=== PATIENT | male | born 1950 | race Caucasian/White ===

== ENCOUNTER → 2021-12-15 11:09 | Outpatient (REF) | payer OTHER, SELFPAY ==
--- NOTE | 2021-12-15 11:15 | ECG_ITS ---
Test Reason : PREOP Blood Pressure : / mmHG Vent. Rate : 073 BPM Atrial Rate : 073 BPM P-R Int : 234 ms QRS Dur : 094 ms QT Int : 386 ms P-R-T Axes : 105 -09 -16 degrees QTc Int : 425 ms Sinus rhythm with 1st degree A-V block with Premature atrial complexes with Aberrant conduction Otherwise normal ECG When compared with ECG of 23-APR-2020 11:41, Aberrant conduction is now Present AR interval has increased Referred By: Queta Jacob Electronically Signed By:ALL COLBERT MD
[2021-12-15 11:35] LABS: MANUAL DIFF FLAG NO
[2021-12-15 11:54] LABS: Basophils Percent Auto 0.5 % (0-2); Eosinophils Absolute Auto 0.2 X10*3/uL (0.0-0.4); Hematocrit 39.6 % (42.0-52.0); Hemoglobin 13.1 g/dl (14.0-18.0); Imm Gran Abs Auto 0.02 X10*3/uL (0.00-0.03); Imm Gran Pct Auto 0.4 % (0.0-0.4); Lymphocytes Percent Auto 18.1 % (20-40); Mean Corpuscular HGB Conc 33.1 g/dl (31.0-36.0); Mean Corpuscular Hemoglobin 30.5 pg (27.0-33.0); Mean Corpuscular Volume 92.1 fL (80.0-98.0); Mean Platelet Volume 9.6 fL (9.4-12.4); Monocytes Absolute Auto 0.5 X10*3/uL (0.1-1.2); Monocytes Percent Auto 8.3 % (2-11); Neutrophils Percent Auto 69.7 % (45-73); Platelet Count 304 X10*3/uL (160-400); Red Cell Distribution Width 13.2 % (11.0-16.0); White Blood Count 5.7 X10*3/uL (4.8-10.8)
[2021-12-15 11:57] LABS: Immature Retic Fraction 10.6 % (2.3-13.4); Retic HGB Equivalent 33.9 pg (30.0-35.0); Reticulocyte Percent 2.1 % (0.5-1.8)
[2021-12-15 12:02] LABS: INTERNATIONAL NORM RATIO 1.1 (0.9-1.1); Prothrombin Time 12.4 SEC (9.9-13.0)
[2021-12-15 12:04] LABS: Estimated Average Glucose 166 mg/dL; Hemoglobin A1c % 7.4 %
[2021-12-15 12:34] LABS: Alanine Aminotransferase 58 U/L (0-40); Albumin Level 4.4 g/dL (3.5-5.0); Alkaline Phosphatase 117 U/L (39-117); Anion Gap 12 (12-20); Aspartate Amino Transferase 45 U/L (5-37); Bilirubin Total 0.4 mg/dL (0.0-1.0); Blood Urea Nitrogen 25 mg/dL (9-16); Calcium 9.5 mg/dL (8.4-10.2); Carbon Dioxide 25 mmol/L (22-29); Chloride 107 mmol/L (96-108); Cholesterol 170 mg/dL; Estimated Glomerular Filt Rate > 60; Glucose Random 131 mg/dL (60-115); HDL Cholesterol 41 mg/dL; Iron 60 mcg/dL (45-160); LDL Cholesterol Calculated 93 mg/dl; Percent Iron Saturation 18 % (15-50); Potassium 4.6 mmol/L (3.3-5.1); Sodium 139 mmol/L (135-145); Total Iron Binding Capacity 334 mcg/dL (228-428); Total Protein 7.2 g/dL (6.5-8.0); Triglycerides 181 mg/dL; Unsaturated Iron Binding 274 ug/dL
[2021-12-15 12:55] LABS: Thyroid Stimulating Hormone 1.12 uIU/mL (0.32-4.0)
[2021-12-15 13:00] LABS: Ferritin 81 ng/mL (20-250); PSA,Total (Free>4and<10) < 0.05 ng/mL (0.00-4.00)
[2021-12-15 13:19] LABS: Creatinine Urine 150.81 mg/dL; Microalbum/Creatinine Ratio Ur 8.6 ug/mg cr
[2021-12-15 13:26] LABS: Folate > 20.0 ng/mL (> or = 4.0); Vitamin B12 710 pg/mL (200-900)
== END ==
LOC: HO.CARD 11:09
PROVIDERS: PCP Internal Medicine; Visit Provider Nurse Practitioner Family
DX: Z01.818 Encounter for other preprocedural examination (principal); D64.9 Anemia, unspecified; I10 Essential (primary) hypertension; E11.65 Type 2 diabetes mellitus with hyperglycemia; E78.00 Pure hypercholesterolemia, unspecified; K22.70 Barrett's esophagus without dysplasia; C61 Malignant neoplasm of prostate
CPT/HCPCS: 36415; 80053; 80061; 82043; 82607; 82728; 82746; 83036; 83540; 84153; 84439; 84443; 85025; 85045; 85610; 85730; 93005

== ENCOUNTER 2023-06-12 08:10 | Outpatient (AMB) | payer OTHER, SELFPAY ==
[2023-06-12 08:17] VITALS: BP 140/76; PULSE 68; O2SAT 97; BMI 29.2
--- NOTE | 2023-06-12 08:17 | A.OFFPC_ITS ---
Vital Signs 06/12/23 08:17 Height 6 ft 1 in Weight 221 lb BMI 29.2 BP 140/76 H Blood Pressure Location Lt brachial Position Sitting Pulse 68 Pulse Source Pulse Oximeter Pulse Oximetry (%) 97 Oxygen Delivery Method Room Air Intake Visit Reasons: 6m F/U DM Allergies No Known Allergies Allergy (Verified 06/12/23 08:17) Tobacco use date assessed: 12/06/22 Fall risk assessment: No Falls in past year Last assessed Fall Risk: 06/12/23 Dental Screening Dental Screen Date: 06/12/23 Did you have a dental visit in the last 12 months?: Yes Did you have a dental problem in the last 6 months where you did not have access to dental care?: No Was dental information given to patient?: Patient has dentist HPI 6m F/U DM HPI Details 73-year-old overweight male with uncontrolled diabetes mellitus Foreman's esophagus hypercholesterolemia obstructive sleep apnea history of prostate cancer coming in for follow-up last seen in March 2022. Patient is here for follow-up. Colonoscopy done May [address] Villalba patient is being seen by Endocrinology. Review of the notes urology follow-up April 2020 diagnosis of prostate cancer April 2018 radiation therapy October 2019 completed 2 years androgen deprivation therapy patient continues to have a problem with radiation proctitis. Meanwhile diabetes being seen by Dr. Emmanuel in [facility] hemoglobin A1c 7.0 last note in March 2023. Last blood work noted done November 2022 microalbumin creatinine ratio 11 fasting blood sugar 161 creatinine is 0.9 liver function ALT of 44 LDL of 80 triglyceride of 188 normal thyroid mild anemia at 13.4. on lisinopril 20 mg BID . EGD - will be seeing 07/2023 [facility] GI. PAtient was given another med for colesevelam [facility] Medical History (Updated 12/06/22 @ 10:37 by BARBARA Sauer) Barretts esophagus Cataract Fatty liver Hiatal hernia Hypercholesterolemia Lumbar degenerative disc disease Obstructive sleep apnea Prostate cancer Radiation proctitis Type 2 diabetes mellitus with hyperglycemia Surgical History (Updated 12/06/22 @ 10:34 by BARBARA Sauer) History of cataract surgery History of colonoscopy History of endoscopy History of removal of cyst Family History Father Testicular cancer Diabetes Hypertension Stroke Mother Colon cancer Breast cancer Paternal Uncle Myocardial infarction Brother Kidney problem Brother No problems noted. Social History Housing: House Alcohol intake: current Alcohol intake frequency: a few times a week Alcohol type: wine Patient Tobacco Use Status: Former Tobacco user Tobacco use type: Cigarette Cigarette Packs Per Day: 1 e-Cigarette/Vaping Use: Never Used Second Hand Smoke Exposure: No service: No Current occupational status: retired Cognitive needs: No Hearing needs: No Vision needs: Yes (reading glasses) Questionnaire PHQ-9 Over the last 2 weeks, how often have you been bothered by any of the following problems? 1. Little interest or pleasure in doing things: not at all 2. Feeling down, depressed, or hopeless: not at all 3. Trouble falling or staying asleep, or sleeping too much: not at all 4. Feeling tired or having little energy: not at all 5. Poor appetite or overeating: not at all 6. Feeling bad about yourself - or that you are a failure or have let yourself or your family down: not at all 7. Trouble concentrating on things, such as reading the newspaper or watching television: not at all 8. Moving or speaking so slowly that other people could have noticed. Or the opposite - being so fidgety or restless that you have been moving around a lot more than usual: not at all 9. Thoughts that you would be better off or of hurting yourself in some way: not at all Total score: 0 Depression Screening Interpretation: Negative 18645 - PHQ-9 Billing: Yes Source: Developed by Drs. Earl Woodson, Ailyn Barron, Abner Blair and colleagues, with an educational walker from [employer]. Thrive Questionnaire Date Thrive assessed: 12/06/22 AUDIT C Alcohol Use Questionnaire (AUDIT-C) 1. How often do you have a drink containing alcohol?: 4 or more times a week 2. How many drinks containing alcohol do you have on a typical day when you are drinking?: 1 or 2 3. How often do you have six or more drinks on one occasion?: Never Total Score: 4 Score Reviewed/Action Taken: Yes LOGAN-7 AMB Questionnaire LOGAN-7 Date LOGAN - 7 assessed: 12/06/22 Source: Developed by Drs. Earl Woodson, Ailyn Barron, Abner Blair and colleagues, with an educational walker from [employer]. Physical exam (Primary Care) Vital Signs: Last Vital Signs Pulse 68 06/12/23 08:17 BP 140/76 H 06/12/23 08:17 Pulse Ox 97 06/12/23 08:17 Oxygen Delivery Method Room Air 06/12/23 08:17 BMI result Body Mass Index 29.2 Tobacco/Smoking Status: Tobacco use Status Tobacco use date assessed 12/06/22 06/12/23 08:18 Patient Tobacco Use Status Former Tobacco user 06/12/23 08:18 Tobacco use type Cigarette 06/12/23 08:18 e-Cigarette/Vaping Use Never Used 06/12/23 08:18 PHQ-9: PHQ-9 Score PHQ-9: Total score 0 06/12/23 08:18 Depression Screening Interpretation: Negative Thrive Assessment: Date of Thrive Assessment Date Thrive assessed 12/06/22 06/12/23 08:18 Const General: alert; No acute distress Eyes Conjunctivae: conjunctivae normal Resp Auscultation: clear to auscultation bilaterally Cardio Rate: regular rate Rhythm: regular rhythm GI Inspection: Yes normal to inspection Extrem General: Yes normal to inspection and No edema Assessment and Plan Assessment & Plan (1) Type 2 diabetes mellitus with hyperglycemia: Code(s): E11.65 - Type 2 diabetes mellitus with hyperglycemia Qualifiers: Diabetes mellitus residential insulin use: without residential use Qualified Code(s): E11.65 - Type 2 diabetes mellitus with hyperglycemia Plan: Decrease the amount of carbohydrate intake, pasta, bread, rice and potatoes are all sugar and that is aside from all the sweet stuff, remember that fruits are good but they are Sweet also. Hemoglobin A1c goal of less than 7.0. Patient being seen by Endocrinology patient takes Humalog sliding scale Lantus at 35 units once a day Trulicity 1.5 mg once a week (2) Barretts esophagus: Comment: Status post radiofrequency ablation January 2010, EGD October 2021 Code(s): K22.70 - Foreman's esophagus without dysplasia Qualifiers: Foreman's esophagus type: without dysplasia Qualified Code(s): K22.70 - Foreman's esophagus without dysplasia Plan: Avoid the foods that causes that usually spicy foods, tomato products, juices, coffee, soda and foods that your sensitive to. After eating do not lie down, allow 3-4 hours before in lie down. And keep the head of bed above 30 degrees to avoid the acid from going up. On omeprazole 40 mg twice a day (3) Hypercholesterolemia: Code(s): E78.00 - Pure hypercholesterolemia, unspecified Plan: Avoid fried foods, chicken skin, eggs, butter margarine, pastries and meat. Be it pork or beef they have a lot of cholesterol LDL goal of less than 100 and triglyceride of less than 150 patient's last blood work was in November 2022 (4) Obstructive sleep apnea: Comment: cannot tolerate CPAP (08/2020) Code(s): G47.33 - Obstructive sleep apnea (adult) (pediatric) Plan: Cannot tolerate CPAP (5) Prostate cancer: Comment: May 2018 Dr. Tilley radiotherapy November 2019. has a ff up Code(s): C61 - Malignant neoplasm of prostate Plan: Continue to follow-up with the Urology (6) Hypertension: Code(s): I10 - Essential (primary) hypertension Plan: Continue with blood pressure medication. Decrease salt intake and exercise presently on lisinopril 20 mg twice a day Orders: Orders Comprehensive Met. Panel 6 Months E11.65 - Type 2 diabetes mellitus with hyperglycemia Complete Blood Count Auto Diff 6 Months E11.65 - Type 2 diabetes mellitus with hyperglycemia Free T4 (Free Thyroxine) 6 Months E11.65 - Type 2 diabetes mellitus with hyperglycemia Thyroid Stimulating Hormone 6 Months E11.65 - Type 2 diabetes mellitus with hyperglycemia Microalbumin, Random (w Creat) 6 Months E11.65 - Type 2 diabetes mellitus with hyperglycemia Ferritin 6 Months E11.65 - Type 2 diabetes mellitus with hyperglycemia Creatinine Urine Today E11.65 - Type 2 diabetes mellitus with hyperglycemia IRON PROFILE 6 Months E11.65 - Type 2 diabetes mellitus with hyperglycemia Lipid Panel 6 Months E11.65 - Type 2 diabetes mellitus with hyperglycemia, E78.00 - Pure hypercholesterolemia, unspecified Vitamin B12 and Folate 6 Months E11.65 - Type 2 diabetes mellitus with hyperglycemia Prostate Specific Antigen Scr 6 Months E11.65 - Type 2 diabetes mellitus with hyperglycemia Reticulocyte Count 6 Months E11.65 - Type 2 diabetes mellitus with hyperglycemia AMB Hemoglobin A1c Today Z13.9 - Encounter for screening, unspecified Referrals Sleep Medicine Referral G47.33 - Obstructive sleep apnea (adult) (pediatric) Medications: New lisinopril-hydrochlorothiazide 20-12.5 mg 1 tab PO BID 60 tabs 4RF I10 - Essen tial (primary) hypertension Coding Level of Care Code Est Pt Level 4 (54578) Diagnoses Type 2 diabetes mellitus with hyperglycemia E11.65 Diabetes mellitus continuous churn 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
== END 2023-06-12 09:05 | disposition home or self-care (01) ==
PROVIDERS: PCP Internal Medicine; Visit Provider Internal Medicine
DX: I10 Essential (primary) hypertension (principal); C61 Malignant neoplasm of prostate; E11.65 Type 2 diabetes mellitus with hyperglycemia; K22.70 Barrett's esophagus without dysplasia; E78.00 Pure hypercholesterolemia, unspecified; G47.33 Obstructive sleep apnea (adult) (pediatric)
CPT/HCPCS: 99214

== ENCOUNTER 2023-12-11 09:51 | Outpatient (AMB) | payer OTHER, SELFPAY ==
[2023-12-11 09:52] VITALS: BP 130/60; PULSE 68; O2SAT 99; BMI 28.1
--- NOTE | 2023-12-11 09:52 | MHC.PC.OV ---
Vital Signs 12/11/23 09:52 Height 6 ft 1 in Weight 213 lb BMI 28.1 BP 130/60 Blood Pressure Location Lt brachial Position Sitting Pulse 68 Pulse Source Pulse Oximeter Temp Source Skin Pulse Oximetry (%) 99 Oxygen Delivery Method Room Air Intake Visit Reasons: pe, DM Intake Note: Patient is here today for a physical. Head Sawyer Required: No Allergies No Known Allergies Allergy (Verified 12/11/23 09:53) Medication List - Last Reconciled 12/11/23 by Antoni Damon MD antiarthritic combination no.2 (glucosamine-chondroitin) 900 mg PO DAILY atorvastatin (Lipitor) 10 mg PO DAILY B-complex with vitamin C 1 tab PO DAILY blood sugar diagnostic (FreeStyle Lite Strips) test blood sugar ones a day cholecalciferol (vitamin D3) 25 mcg PO DAILY dulaglutide (Trulicity) 1.5 mg subcut QWEEK insulin glargine (Lantus Solostar U-100 Insulin) 40 units subcut QAM insulin lispro (Humalog KwikPen (U-100) Insulin) 5 units subcut TID lisinopril-hydrochlorothiazide 20-12.5 mg 1 tab PO BID multivitamin 1 tab PO DAILY omeprazole 40 mg PO BID 90 days Tobacco use date assessed: 12/11/23 Fall risk assessment: No Falls in past year Last assessed Fall Risk: 12/11/23 Dental Screening Dental Screen Date: 12/11/23 Did you have a dental visit in the last 12 months?: Yes Did you have a dental problem in the last 6 months where you did not have access to dental care?: No Was dental information given to patient?: Patient has dentist HPI pe, DM HPI Details 73-year-old overweight male with diabetes mellitus hypercholesterolemia Foreman's esophagus obstructive sleep apnea prostate cancer hypertension coming in for physical exam last seen in June 2023. Patient's colonoscopy was last done in May 2020 EGD last done in October 2021. Blood work done in [facility] showing an elevated blood sugar of 186 creatinine of 1.0 normal liver numbers normal iron LDL of 75 triglyceride of 122 total of 145 normal thyroid number mild anemia of 13.1 and 39.4 normal white blood cell normal platelet count urine microalbumin ratio is 10.8 patient follows up with Dermatology benign nevi seborrheic keratosis history of basal cell patient also follows up with urology April 2018 radiation therapy androgen deprivation does have radiation proctitis with intermittent diarrhea and hematochezia Dr. Prasad EGD done under Dr. Kohli July 2023 normal stomach and duodenum advised EGD 1 year HGB AIC 11/2023 7.2 2 weeks ago fell on the stairs R humeral fracture 11/27/2023 Dr. Sami PINTO advised - aligned ff up next week xray on oxycodone 5 mg . [facility] Medical History (Updated 12/11/23 @ 10:43 by Antoni Damon MD) Hiatal hernia Radiation proctitis Lumbar degenerative disc disease Cataract Prostate cancer Obstructive sleep apnea Fatty liver Hypercholesterolemia Barretts esophagus Type 2 diabetes mellitus with hyperglycemia Surgical History (Updated 12/06/22 @ 10:34 by BARBARA Sauer) History of colonoscopy History of endoscopy History of removal of cyst History of cataract surgery Family History Father Testicular cancer Diabetes Hypertension Stroke Mother Colon cancer Breast cancer Paternal Uncle Myocardial infarction Brother Kidney problem Brother No problems noted. Social History (Updated 12/11/23 @ 10:51 by Antoni Damon MD) Housing: House Alcohol intake: current Alcohol intake frequency: a few times a week Alcohol type: wine Comment: oncea week = 3-4 drinks Patient Tobacco Use Status: Former Tobacco user Tobacco use type: Cigarette Cigarette Packs Per Day: 1 Years Smoked: quit 1999 e-Cigarette/Vaping Use: Never Used Second Hand Smoke Exposure: No service: No Current occupational status: retired Cognitive needs: No Hearing needs: No Vision needs: Yes (reading glasses) Questionnaire PHQ-9 Over the last 2 weeks, how often have you been bothered by any of the following problems? 1. Little interest or pleasure in doing things: not at all 2. Feeling down, depressed, or hopeless: not at all 3. Trouble falling or staying asleep, or sleeping too much: not at all 4. Feeling tired or having little energy: not at all 5. Poor appetite or overeating: not at all 6. Feeling bad about yourself - or that you are a failure or have let yourself or your family down: not at all 7. Trouble concentrating on things, such as reading the newspaper or watching television: not at all 8. Moving or speaking so slowly that other people could have noticed. Or the opposite - being so fidgety or restless that you have been moving around a lot more than usual: not at all 9. Thoughts that you would be better off or of hurting yourself in some way: not at all Total score: 0 Depression Screening Interpretation: Negative Depression Screening Done: Yes Source: Developed by Drs. Earl Woodson, Ailyn Barron, Abner Blair and colleagues, with an educational walker from [employer]. Thrive Questionnaire Date Thrive assessed: 12/11/23 I am a: Patient What is your living situation today?: I have a steady place to live Within the past 12 months, did the food you bought not last and you didn't have the money to get more?: Never true Within the past 12 months, did you worry whether your food would run out before you got money to buy more?: Never true Do you have trouble paying for medicines?: No Do you have trouble getting transportation to medical appointments?: No Do you have trouble paying your heating and electricity bill?: No Do you have trouble taking care of your child, family member or friend?: No Do you have trouble with day-to-day activities such as bathing, preparing meals, shopping, managing finances, etc.?: No Are you currently unemployed and looking for a job?: No Are you interested in more education?: No Please select the resources that you would like help with: None THRIVE Score: 0 AUDIT C Alcohol Use Questionnaire (AUDIT-C) 1. How often do you have a drink containing alcohol?: 4 or more times a week 2. How many drinks containing alcohol do you have on a typical day when you are drinking?: 1 or 2 3. How often do you have six or more drinks on one occasion?: Never Total Score: 4 Score Reviewed/Action Taken: Yes LOGAN-7 AMB Questionnaire LOGAN-7 Date LOGAN - 7 assessed: 12/11/23 Feeling nervous, anxious, or on edge: 0 = Not at all Not being able to stop or control worryin = Not at all Worrying too much about different things: 0 = Not at all Trouble relaxin = Not at all Being so restless that it is hard to sit still: 0 = Not at all Becoming easily annoyed or irritable: 0 = Not at all Feeling afraid as if something awful might happen: 0 = Not at all Total LOGAN-7 score (0-4 normal; 5-9 mild; 10-14 moderate; 15-21 severe): 0 Source: Developed by Drs. Earl Woodson, Ailyn Barron, Abner Blair and colleagues, with an educational walker from [employer]. Review of Systems Const Denies poor appetite and Denies weakness Eyes Denies no additional complaints ENT Reports Normal hearing present, Denies dizziness, Denies nasal congestion, Denies tinnitus and Denies sore throat Card Denies chest pain, Denies syncope, Denies rapid heart rate and Denies dyspnea Resp Denies cough and Denies dyspnea GI Denies change in stool character, Reports constipation, Denies diarrhea, Denies nausea and Denies vomiting Denies dysuria and Denies urinary frequency Neuro Reports Normal hearing present, Denies confusion, Denies dizziness, Denies syncope and Denies weakness Psych Denies confusion Physical exam (Primary Care) Vital Signs: Last Vital Signs Pulse 68 12/11/23 09:52 BP 130/60 12/11/23 09:52 Pulse Ox 99 12/11/23 09:52 Oxygen Delivery Method Room Air 12/11/23 09:52 BMI result Body Mass Index 28.1 Tobacco/Smoking Status: Tobacco use Status Tobacco use date assessed 12/11/23 12/11/23 09:54 Patient Tobacco Use Status Former Tobacco user 12/11/23 09:54 Tobacco use type Cigarette 12/11/23 09:54 e-Cigarette/Vaping Use Never Used 12/11/23 09:54 PHQ-9: PHQ-9 Score PHQ-9: Total score 0 12/11/23 10:18 Depression Screening Interpretation: Negative Thrive Assessment: Date of Thrive Assessment Date Thrive assessed 12/11/23 12/11/23 09:54 Const General: No confusion Orientation/consciousness: No confusion HENMT Head: Yes normocephalic Ears: external ears normal and TM's normal bilaterally Face and sinus: Yes normal facial exam Mouth: moist mucous membranes Throat: Yes tonsils normal Eyes Conjunctivae: conjunctivae normal Pupils: Equal, round and reactive pupils present and Pupil accommodation reflex normal Direct Ophthalmoscopy: normal light reflex Neck Neck: No lymphadenopathy Thyroid: Thyroid normal Chest Chest palpation & inspection: normal inspection of the chest Resp Effort & Inspection: normal respiratory effort and no audible wheezes Auscultation: clear to auscultation bilaterally, no crackles, no wheezes and lung sounds not diminished Cardio Rate: regular rate Rhythm: regular rhythm Peripheral pulses: radial pulses present and dorsalis pedis present GI Palpation (GI): no masses Auscultation: normal bowel sounds and normoactive bowel sounds Rectal Exam - Male: Yes deferred Skin General skin exam: no rashes or lesions noted Rashes: no rashes Neuro General: No confusion Cranial nerves: Yes Equal, round and reactive pupils present and Yes Normal hearing present Cognition (Neuro): normal cognition Gait exam (Neuro): Normal gait present Motor exam (neuro): 5/5 motor strength present throughout Deep tendon reflexes (DTR's): Right brachioradialis reflex intensity grade: 2+, Left brachioradialis reflex intensity grade: 2+, Right patellar reflex intensity grade: 2+ and Left patellar reflex intensity grade: 2+ Extrem General: No edema Assessment and Plan Assessment & Plan (1) Annual physical exam: Code(s): Z00.00 - Encounter for general adult medical examination without abnormal findings (2) Type 2 diabetes mellitus with hyperglycemia: Code(s): E11.65 - Type 2 diabetes mellitus with hyperglycemia Qualifiers: 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 Hemoglobin A1c goal of less than 7.0 (3) Hypercholesterolemia: Code(s): E78.00 - Pure hypercholesterolemia, unspecified Plan: Avoid fried foods, chicken skin, eggs, butter margarine, pastries and meat. Be it pork or beef they have a lot of cholesterol LDL goal of less than 100 and triglyceride of less than 150 (4) Hypertension: Code(s): I10 - Essential (primary) hypertension Plan: Continue with blood pressure medication. Decrease salt intake and exercise takes lisinopril hydrochlorothiazide 20/12.5 (5) Prostate cancer: Comment: May 2018 Dr. Prasad radiotherapy November 2019. has a ff up Code(s): C61 - Malignant neoplasm of prostate Plan: Continue to follow-up with urology (6) Barretts esophagus: Comment: Status post radiofrequency ablation January 2010, EGD October Code(s): K22.70 - Foreman's esophagus without dysplasia Qualifiers: Foreman's esophagus type: without dysplasia Qualified Code(s): K22.70 - Foreman's esophagus without dysplasia Plan: EGD done July 2023 has omeprazole 40 mg twice a day (7) Obstructive sleep apnea: Comment: cannot tolerate CPAP (08/2020) Code(s): G47.33 - Obstructive sleep apnea (adult) (pediatric) Plan: Discussed about importance of obstructive sleep apnea treatment (8) Anemia: Code(s): D64.9 - Anemia, unspecified Plan: Stable and continue to monitor (9) Right humeral fracture: Comment: fall 11/27/2023 BLAIR (no surgery needed) Code(s): S42.301A - Unspecified fracture of shaft of humerus, right arm, initial encounter for closed fracture Orders: Orders AMB Hemoglobin A1c Today E11.65 - Type 2 diabetes mellitus with hyperglycemia Coding Level of Care Code Est Pt Prev Care >65y(77718) Diagnoses Annual physical exam Z00.00 Type 2 diabetes mellitus with hyperglycemia, without long-term current use of insulin E11.65 Diabetes mellitus correction insulin use: without equipment operator intermodal yard use Hypercholesterolemia E78.00 Hypertension I10 Prostate cancer C61 Foreman's esophagus without dysplasia K22.70 Foreman's esophagus type: without dysplasia Obstructive sleep apnea G47.33 Anemia D64.9 Right humeral fracture S42.301A
== END 2023-12-11 11:15 | disposition home or self-care (01) ==
PROVIDERS: PCP Internal Medicine; Visit Provider Internal Medicine
DX: Z00.00 Encounter for general adult medical examination without abnormal findings (principal); E11.65 Type 2 diabetes mellitus with hyperglycemia; C61 Malignant neoplasm of prostate; E78.00 Pure hypercholesterolemia, unspecified; I10 Essential (primary) hypertension; K22.70 Barrett's esophagus without dysplasia; G47.33 Obstructive sleep apnea (adult) (pediatric); D64.9 Anemia, unspecified; S42.301A Unspecified fracture of shaft of humerus, right arm, initial encounter for closed fracture
CPT/HCPCS: 99397

== ENCOUNTER 2024-03-17 11:19 | Outpatient (AMB) | payer OTHER, SELFPAY ==
[2024-03-17 11:38] VITALS: BP 138/60; PULSE 75; O2SAT 97; BMI 28.2
--- NOTE | 2024-03-17 11:38 | MHC.PC.OV ---
Vital Signs 03/17/24 11:38 Height 6 ft 1 in Weight 214 lb 0.6 oz BMI 28.2 BP 138/60 Blood Pressure Location Lt brachial Position Sitting Pulse 75 Pulse Source Pulse Oximeter Pulse Oximetry (%) 97 Oxygen Delivery Method Room Air Intake Visit Reasons: DM Intake Note: last A1C : 7.2 Allergies No Known Allergies Allergy (Verified 12/11/23 09:53) Medication List - Last Reconciled 03/17/24 by Antoni Damon MD antiarthritic combination no.2 (glucosamine-chondroitin) 900 mg PO DAILY atorvastatin (Lipitor) 10 mg PO DAILY B-complex with vitamin C 1 tab PO DAILY blood sugar diagnostic (FreeStyle Lite Strips) test blood sugar ones a day cholecalciferol (vitamin D3) 25 mcg PO DAILY dulaglutide (Trulicity) 1.5 mg subcut QWEEK insulin glargine (Lantus Solostar U-100 Insulin) 40 units subcut QAM insulin lispro (Humalog KwikPen (U-100) Insulin) 5 units subcut TID lisinopril-hydrochlorothiazide 20-12.5 mg 1 tab PO BID multivitamin 1 tab PO DAILY omeprazole 40 mg PO BID 90 days Tobacco use date assessed: 12/11/23 Dental Screening Dental Screen Date: 12/11/23 HPI DM HPI Details 73-year-old overweight male with uncontrolled diabetes mellitus hypercholesterolemia hypertension history of prostate cancer Barretts esophagus and obstructive sleep apnea last seen in 12/26/[address]. [address] Rodriguez for diabetes sees ne colonoscopy 2019 review of the notes 01/26/2024 had a sleep study showing sleep apnea and was advised auto CPAP 6-15 cm water patient's last blood work was done in 11/27/2023 B12 good glucose was 186 creatinine of 1.0 liver numbers are normal elevated folic acid LDL of 75 no TSH normal patient does have a mild anemia at 13.1 which is chronic ratio is within normal limits. AIC 7.2 last week . 3 weeks AUTO CPAP - having a hard time to uses. complains of R arm and hand numbness and work up under neuro. also complains of forgetting a lot- [facility] Medical History (Updated 03/17/24 @ 12:39 by Antoni Damon MD) Hiatal hernia Radiation proctitis Lumbar degenerative disc disease Cataract Prostate cancer Obstructive sleep apnea Fatty liver Hypercholesterolemia Barretts esophagus Type 2 diabetes mellitus with hyperglycemia Surgical History (Updated 12/06/22 @ 10:34 by BARBARA Sauer) History of colonoscopy History of endoscopy History of removal of cyst History of cataract surgery Family History Father Testicular cancer Diabetes Hypertension Stroke Mother Colon cancer Breast cancer Paternal Uncle Myocardial infarction Brother Kidney problem Brother No problems noted. Social History (Updated 12/11/23 @ 10:51 by Antoni Damon MD) Housing: House Alcohol intake: current Alcohol intake frequency: a few times a week Alcohol type: wine Comment: oncea week = 3-4 drinks Patient Tobacco Use Status: Former Tobacco user Tobacco use type: Cigarette Cigarette Packs Per Day: 1 Years Smoked: quit 1999 e-Cigarette/Vaping Use: Never Used Second Hand Smoke Exposure: No service: No Current occupational status: retired Cognitive needs: No Hearing needs: No Vision needs: Yes (reading glasses) Questionnaire Thrive Questionnaire Date Thrive assessed: 12/11/23 LOGAN-7 AMB Questionnaire LOGAN-7 Date LOGAN - 7 assessed: 12/11/23 Source: Developed by Drs. Earl Woodson, Ailyn Barron, Abner Blair and colleagues, with an educational walker from [employer]. Physical exam (Primary Care) Vital Signs: Last Vital Signs Pulse 75 03/17/24 11:38 BP 138/60 03/17/24 11:38 Pulse Ox 97 03/17/24 11:38 Oxygen Delivery Method Room Air 03/17/24 11:38 BMI result Body Mass Index 28.2 Tobacco/Smoking Status: Tobacco use Status Tobacco use date assessed 12/11/23 03/17/24 11:42 Patient Tobacco Use Status Former Tobacco user 03/17/24 11:42 Tobacco use type Cigarette 03/17/24 11:42 e-Cigarette/Vaping Use Never Used 03/17/24 11:42 Thrive Assessment: Date of Thrive Assessment Date Thrive assessed 12/11/23 03/17/24 11:42 Const General: alert; No acute distress Eyes Conjunctivae: conjunctivae normal Resp Auscultation: clear to auscultation bilaterally Cardio Rate: regular rate Rhythm: regular rhythm GI Inspection: Yes normal to inspection Extrem General: Yes normal to inspection and No edema Assessment and Plan Assessment & Plan (1) Type 2 diabetes mellitus with hyperglycemia: Comment: Dr./ West Code(s): E11.65 - Type 2 diabetes mellitus with hyperglycemia Qualifiers: 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 Hemoglobin A1c goal of less than 7.0. (2) Barretts esophagus: Comment: Status post radiofrequency ablation January 2010, EGD October Code(s): K22.70 - Foreman's esophagus without dysplasia Qualifiers: Foreman's esophagus type: without dysplasia Qualified Code(s): K22.70 - Foreman's esophagus without dysplasia Plan: Take I saw it Avoid the foods that causes that usually spicy foods, tomato products, juices, coffee, soda and foods that your sensitive to. After eating do not lie down, allow 3-4 hours before in lie down. And keep the head of bed above 30 degrees to avoid the acid from going up. On omeprazole 40 mg twice a day (3) Hypercholesterolemia: Code(s): E78.00 - Pure hypercholesterolemia, unspecified Plan: Avoid fried foods, chicken skin, eggs, butter margarine, pastries and meat. Be it pork or beef they have a lot of cholesterol LDL goal of less than 100 and triglyceride of less than 150 patient on atorvastatin 10 mg once a day (4) Obstructive sleep apnea: Comment: cannot tolerate CPAP (08/2020) 01/26/2024 Code(s): G47.33 - Obstructive sleep apnea (adult) (pediatric) Plan: Patient just had a sleep study done and has been advised auto CPAP (5) Prostate cancer: Comment: May 2018 Dr. Tilley radiotherapy November 2019. has a ff up Code(s): C61 - Malignant neoplasm of prostate Plan: Continue to monitor under urology (6) Anemia: Code(s): D64.9 - Anemia, unspecified Plan: Stable chronic (7) Hypertension: Code(s): I10 - Essential (primary) hypertension Plan: Continue with blood pressure medication. Decrease salt intake and exercise on lisinopril hydrochlorothiazide 2012.5 mg twice a day (8) Cognitive change: Code(s): R41.89 - Other symptoms and signs involving cognitive functions and awareness Plan: decline referral for now and sees neurol (9) Right cervical radiculopathy: Code(s): M54.12 - Radiculopathy, cervical region Plan: nerve conduction testing Orders: Orders AMB Hemoglobin A1c Today E11.65 - Type 2 diabetes mellitus with hyperglycemia Coding Level of Care Code Est Pt Level 4 (19594) Complex EM visit Add On G2211 Diagnoses Type 2 diabetes mellitus with hyperglycemia, without long-term current use of insulin E11.65 Diabetes mellitus group home insulin use: without termite control servicer use Froeman's esophagus without dysplasia K22.70 Foreman's esophagus type: without dysplasia Hypercholesterolemia E78.00 Obstructive sleep apnea G47.33 Prostate cancer C61 Anemia D64.9 Hypertension I10 Cognitive change R41.89 Right cervical radiculopathy M54.12
== END 2024-03-17 12:44 | disposition home or self-care (01) ==
PROVIDERS: PCP Internal Medicine; Visit Provider Internal Medicine
DX: E11.65 Type 2 diabetes mellitus with hyperglycemia (principal); C61 Malignant neoplasm of prostate; K22.70 Barrett's esophagus without dysplasia; E78.00 Pure hypercholesterolemia, unspecified; G47.33 Obstructive sleep apnea (adult) (pediatric); D64.9 Anemia, unspecified; I10 Essential (primary) hypertension; R41.89 Other symptoms and signs involving cognitive functions and awareness; M54.12 Radiculopathy, cervical region
CPT/HCPCS: 99214; G2211

== ENCOUNTER → 2024-06-04 14:38 | Outpatient (RCR) | payer OTHER, SELFPAY ==
[2020-10-14 08:02] VITALS: BP 164/71; PULSE 82; RESP 12; TEMP 36.5; O2SAT 97; BMI 29.6
--- NOTE | 2020-10-14 08:46 | PM.HEMONCCN ---
Subjective - Subjective Chief complaint: Consult for Anemia. Prostate cancer. Patient: new to practice (cancer/) Consult date: 10/14/20 Requesting Physician: gerry Primary Care Provider: Antoni Damon MD Medical Summary: DIAGNOSIS: ANEMIA. PROSTATE CANCER. HPI - Consult Narrative Reason for consult: Anemia Narrative: Trevor Frias is a pleasant 70 year old gentleman, who has a history of prostate cancer. He had a Seferino 6(3+3) in 3 cores in 2018. He was initially undergoing close observation. Rebiopsy after 1 year with no change in PSA of 9.4. This time he had Seferino 8 in 1 core(4+4) with perineural invasion involving 95% of the core. T1c,N0,M0. After multiple discussions he wished to proceed with radiation therapy with hormone suppression adjuvantly concurrently and adjuvantly. He received radiation therapy at [facility] under the care of Dr. Dorsey. He was treated with VMAT radiation therapy to the pelvis using cone beam imaging daily for imaging guidance. He then had a cone down using VMAT to the prostate and proximal seminal vesicles. Total dose was 04/14/2000 cGy at 2 Gy per fraction. He completed 8 weeks of radiation 09/18/2019. He had the expected increased frequency of urination and bowel movements with some loose stools. Subsequently he had some GI complaints. He had diarrhea starting 2 weeks later for 3 months. He was okay for 3 months and then it restarted. He required a brief course of Imodium with no treatment breaks. He used AZO with the excellent response. He is under the care of Dr. Vela, from GI at [facility]. He has had a history of Foreman's esophagus. He has been going back for annual endoscopy. He had his last GI evaluation on May 26. He had an upper endoscopy and colonoscopy at that time. EGD: In the antrum there was a slight raise 3-4 mm nodule which was biopsied. Iron even gastroesophageal junction without clear Foreman's esophagus. Small hiatus hernia. Small nodules, question polyp, antrum. Pathology: Hyperplastic gastric polyp. Esophageal squamous and gastric cardia/fundic body mucosa with no pathological changes. No Foreman's identified. Colonoscopy revealed evidence of radiation proctitis, in the distal and mid rectum there was evidence of telangiectasia and mild erythema and edema of the rectal wall. Biopsies were not done. He tells me that over the past 3-4 weeks he has noticed fresh blood per rectum. It is not every day but when he gets it there is a lot of blood in the toilet bowl. Usually that happens when his bowels are rather firm and not soft. He denies any abdominal pain, nausea nor heartburn. He has been taking omeprazole. He tells me about 10 years ago he was diagnosed with Foreman's esophagus. He underwent radiofrequency ablation at [facility] in [place]. ROS: He denies feeling overly fatigued. Denies fever nor chills. He enjoys a good appetite. His weight has gone up. He has had some urinary frequency since his radiation for prostate. He has arthritis involving lower back and knees. Review of Systems - Constitutional Reports system reviewed and no additional complaints, except as documented - Eyes Reports system reviewed and no additional complaints, except as documented - ENT Reports system reviewed and no additional complaints, except as documented - Cardiovascular Reports system reviewed and no additional complaints, except as documented - Respiratory Reports no additional respiratory complaints - Gastrointestinal Reports system reviewed and no additional complaints, except as documented - Genitourinary Genitourinary: Reports no additional male genitourinary complaints - Musculoskeletal Reports system reviewed and no additional complaints, except as documented - Integumentary/Breasts Skin/Breast: Reports no additional skin complaints - Neurologic Reports system reviewed and no additional complaints, except as documented - Psychiatric Reports system reviewed and no additional complaints, except as documented - Endocrine Reports no additional endocrine complaints - Hematologic/Lymphatic Reports system reviewed and no additional complaints, except as documented - Allergic/Immunologic Reports system reviewed and no additional complaints, except as documented [facility] Medical History: Medical History (Last Updated 08/13/20 @ 09:32 by Antoni Damon MD) Barretts esophagus Cataract Fatty liver Hiatal hernia Hypercholesterolemia Lumbar degenerative disc disease Obstructive sleep apnea Prostate cancer Radiation proctitis Type 2 diabetes mellitus with hyperglycemia Family History: Family History (Last Updated 08/12/20 @ 07:54 by SARAN Knapp) Father Testicular cancer Diabetes Hypertension Stroke Mother Colon cancer Breast cancer Paternal Uncle Myocardial infarction Brother Kidney problem Surgical History: Surgical History (Last Updated 08/12/20 @ 07:52 by SARAN Knapp) History of cataract surgery History of removal of cyst Smoking status: Former smoker Home Medications and Allergies Home Medications Medication Instructions Recorded Confirmed Type B-complex with vitamin C 1 tab PO DAILY 08/13/20 10/14/20 History antiarthritic combination no.2 900 900 mg PO DAILY 08/13/20 10/14/20 History mg tablet aspirin 81 mg tablet,delayed 81 mg PO DAILY 08/13/20 10/14/20 History release cholecalciferol (vitamin D3) 25 25 mcg PO DAILY 08/13/20 10/14/20 History mcg (1,000 unit) capsule dulaglutide 0.75 mg/0.5 mL 0.75 mg SUBCUT QWEEK 08/13/20 10/14/20 History subcutaneous pen injector insulin glargine 100 unit/mL (3 32 unit SUBCUT QAM ml 08/13/20 10/14/20 History mL) subcutaneous pen leuprolide (3 month) 22.5 mg (3 22.5 mg SUBCUT Q12W 08/13/20 10/14/20 History month) subcutaneous syringe metformin 1,000 mg tablet 1,000 mg PO BID 08/13/20 10/14/20 History multivitamin 1 tab PO DAILY 08/13/20 10/14/20 History omega-3 fatty acids 1,000 mg 1,000 mg PO DAILY 08/13/20 10/14/20 History capsule Allergies Allergy/AdvReac Type Severity Reaction Status Date / Time No Known Allergies Allergy Verified 08/13/20 09:23 Physical Exam Vital signs: Vital Signs Temp 97.7 F 10/14/20 08:02 Pulse 82 10/14/20 08:02 Resp 12 10/14/20 08:02 BP 164/71 H 10/14/20 08:02 Pulse Ox 97 10/14/20 08:02 Intake & Output 10/13/20 10/14/20 10/14/20 18:59 06:59 18:59 Other: Weight 102 kg Weight 102 kg - Constitutional Present: no acute distress - Routine HEENT Exam Head: Present: normal inspection ENT: Present: mucous membranes moist - Routine Neck Exam Present: supple - Routine Respiratory Exam Present: CTAB - Routine Cardiovascular Exam Cardiovascular: Present: S1, S2 - Routine Abdominal Exam Present: soft, nontender - Routine Rectal Exam Patient deferred: digital exam Hem/Onc Consult Result - Labs CBC & Chem 7: 10/14/20 08:58 01/07/21 08:58 Assessment and Plan (1) Anemia Status: Acute This is a pleasant 70-year-old gentleman with a history of Prostate Cancer diagnosed a couple of years ago. He had radiation therapy for it. He completed that 09/18/2019. Subsequently he had a colonoscopy in April which revealed radiation proctitis. He has developed rectal bleeding over the past 3-4 weeks. He is now quite symptomatic, from it. Most likely bleeding is related to the proctitis. CBC today reveals a hemoglobin of 13.1. Iron studies: 83/280/30/269. Consistent with ACD. So no evidence for iron deficiency. PLAN: I checked his labs to see if he is anemic. Hgb is 13.1. His Iron Studies are c/w ACD. He he was intolerant to oral iron so he stopped taking it. I advised him to follow-up with Dr. Singh to see if he can be treated for the radiation proctitis. He will return in a month for a follow-up visit. Thanks, CC: Po. Villalba.
--- NOTE | 2020-10-14 08:54 | MHC.HEMONCMA ---
Patient came in for a consult of anemia. He states he is feeling okay, just tired. He had prostate cancer that was treated with radiation, which has given him complications with his intestines. He states that for the last 2-3 weeks he has been having bloody stools. Dr Barker requested records from [facility] of his colonoscopy, endoscopy and his radiation treatment. [facility] faxed over all records requested, given to Dr Barker. Patient had labs, Dr Barker would like for him to have ferrilicit infusions for his iron, pt is worried about the copay because he has [facility] and [place] is out of the tier. I advised him to call his insurance and call me back if he would like to have it done here. Dr Barker placed order, I have it on hold until I hear back from the patient. Patient is advised to call GI to be seen sooner since he has now been bleeding rectally for 3 weeks. He states he will call to get sooner appt. Patient is to come back in 1 month for a follow up and labs.
[2020-10-14 09:01] LABS: MANUAL DIFF FLAG NO
[2020-10-14 09:18] LABS: Basophils Percent Auto 0.5 % (0-2); Eosinophils Absolute Auto 0.2 X10*3/uL (0.0-0.4); Eosinophils Percent Auto 3.4 % (0-4); Hematocrit 38.3 % (42-52); Hemoglobin 13.1 g/dl (14.0-18.0); Imm Gran Abs Auto 0.02 X10*3/uL (0.00-0.03); Imm Gran Pct Auto 0.4 % (0.0-0.4); Mean Corpuscular HGB Conc 34.2 g/dl (31.0-36.0); Mean Corpuscular Hemoglobin 31.1 pg (27.0-33.0); Mean Platelet Volume 10.3 fL (9.4-12.4); Monocytes Absolute Auto 0.5 X10*3/uL (0.1-1.2); Monocytes Percent Auto 8.5 % (2-11); Neutrophils Percent Auto 70.2 % (45-73); Platelet Count 279 X10*3/uL (160-400); Red Blood Count 4.21 X10*6/uL (4.60-5.80); Red Cell Distribution Width 13.1 % (11.0-16.0); White Blood Count 5.6 X10*3/uL (4.8-10.8)
[2020-10-14 09:45] LABS: Alanine Aminotransferase 69 U/L (0-40); Albumin Level 4.2 g/dL (3.5-5.0); Alkaline Phosphatase 114 U/L (39-117); Anion Gap 15 (12-20); Aspartate Amino Transferase 30 U/L (5-37); Bilirubin Total 0.3 mg/dL (0.0-1.0); Blood Urea Nitrogen 22 mg/dL (9-16); Calcium 9.1 mg/dL (8.4-10.2); Carbon Dioxide 22 mmol/L (22-29); Chloride 105 mmol/L (96-108); Creatinine Clr Calc Pharmacy 96.4; Estimated Glomerular Filt Rate > 60; Glucose Random 244 mg/dL (60-115); Iron 83 mcg/dL (45-160); Percent Iron Saturation 30 % (15-50); Potassium 4.6 mmol/l (3.3-5.1); Sodium 137 mmol/L (135-145); Total Iron Binding Capacity 280 mcg/dL (228-428); Unsaturated Iron Binding 197 ug/dL
[2020-10-14 10:04] LABS: Ferritin 269 ng/mL (20-250)
--- NOTE | 2020-10-14 12:01 | MHC.HEMONCMA ---
Patient called back, he states that he called [facility] and they asked more questions, I let him know that the infusions are weekly and depending on his level depends on how many weeks. He also asked if we could fax the lab results to the GI. Labs were faxed. Trevor will call me back when he has answers from [facility].
--- NOTE | 2020-11-16 09:04 | P.PNHO_ITS ---
Hem/Onc Clinic Telehealth - Telehealth Location of Provider rendering services: Hem/onc office. Location of Patient: Home. Patient Identification confirmed using: Name, : Yes Telehealth Method: Via telephone. Patient verbally consented to treatment: Yes Patient verbally consented to billing insurance company: Yes Patient informed of any privacy concerns related to visit: Yes Medical Summary - Medical Summary Date of Service: 11/16/20 Medical Summary: DIAGNOSIS: ANEMIA. PROSTATE CANCER. Interval History Interval history: Trevor Frias is a pleasant 70 year old gentleman, with whom a tele visit was held. He tells me that over the past 3-4 weeks he has noticed fresh blood per rectum. It is not every day but when he gets it there is a lot of blood in the toilet bowl. Usually that happens when his bowels are rather firm and not soft. They are mostly loose. He denies any abdominal pain, nausea nor heartburn. He has been taking omeprazole. He saw Dr. Vela a week after I saw him. He prescribed mesalamine suppositories. He has been using them for the last 20 days. The bleeding does appear to be less in amount. He still gets it every day or every other day or so. He will have labs this at [facility]. He has a follow-up appointment 12/16 with him. He tells me about 10 years ago he was diagnosed with Foreman's esophagus. He underwent radiofrequency ablation at [facility] in [place]. ROS: He denies feeling overly fatigued. Denies fever nor chills. He enjoys a good appetite. His weight has gone up. He has had some urinary frequency since his radiation for prostate. He has arthritis involving lower back and knees. Previous history: He has a history of prostate cancer. He had a Seferino 6(3+3) in 3 cores in 2018. He was initially undergoing close observation. Rebiopsy after 1 year with no change in PSA of 9.4. This time he had [place] 8 in 1 core(4+4) with perineural invasion involving 95% of the core. T1c,N0,M0. After multiple discussions he wished to proceed with radiation therapy with hormone suppression adjuvantly concurrently and adjuvantly. He received radiation therapy at [facility] under the care of Dr. Dorsey. He was treated with VMAT radiation therapy to the pelvis using cone beam imaging daily for imaging guidance. He then had a cone down using VMAT to the prostate and proximal seminal vesicles. Total dose was 04/14/2000 cGy at 2 Gy per fraction. He completed 8 weeks of radiation 09/18/2019. He had the expected increased frequency of urination and bowel movements with some loose stools. Subsequently he had some GI complaints. He had diarrhea starting 2 weeks later for 3 months. He was okay for 3 months and then it restarted. He required a brief course of Imodium with no treatment breaks. He used AZO with the excellent response. He is under the care of Dr. Vela, from GI at [facility]. He has had a history of Foreman's esophagus. He has been going back for annual endoscopy. He had his last GI evaluation on May 26. He had an upper endoscopy and colonoscopy at that time. EGD: In the antrum there was a slight raise 3-4 mm nodule which was biopsied. Iron even gastroesophageal junction without clear Foreman's esophagus. Small hiatus hernia. Small nodules, question polyp, antrum. Pathology: Hyperplastic gastric polyp. Esophageal squamous and gastric cardia/fundic body mucosa with no pathological changes. No Foreman's identified. Colonoscopy revealed evidence of radiation proctitis, in the distal and mid rectum there was evidence of telangiectasia and mild erythema and edema of the rectal wall. Biopsies were not done. Review of Systems - Constitutional Reports no additional constitutional complaints - Eyes Reports no additional eye complaints - ENT Reports no additional ear, nose, mouth, and throat complaints - Cardiovascular Reports no additional cardiovascular complaints - Respiratory Reports no additional respiratory complaints - Gastrointestinal Reports no additional gastrointestinal complaints, Reports bright, red blood in stools, Reports change in bowel habits, Reports loose stools - Genitourinary Genitourinary: Reports no additional male genitourinary complaints - Musculoskeletal Reports no additional musculoskeletal complaints - Integumentary/Breasts Skin/Breast: Reports no additional skin complaints - Neurologic Reports no additional neurologic complaints - Psychiatric Reports no additional psychiatric complaints - Endocrine Reports no additional endocrine complaints - Hematologic/Lymphatic Reports no additional hematologic/lymphatic complaints - Allergic/Immunologic Reports no additional allergic/immunologic complaints Home Medications and Allergies Home Medications Medication Instructions Recorded Confirmed Type B-complex with vitamin C 1 tab PO DAILY 08/13/20 10/14/20 History antiarthritic combination no.2 900 900 mg PO DAILY 08/13/20 10/14/20 History mg tablet aspirin 81 mg tablet,delayed 81 mg PO DAILY 08/13/20 10/14/20 History release cholecalciferol (vitamin D3) 25 25 mcg PO DAILY 08/13/20 10/14/20 History mcg (1,000 unit) capsule dulaglutide 0.75 mg/0.5 mL 0.75 mg SUBCUT QWEEK 08/13/20 10/14/20 History subcutaneous pen injector insulin glargine 100 unit/mL (3 32 unit SUBCUT QAM ml 08/13/20 10/14/20 History mL) subcutaneous pen leuprolide (3 month) 22.5 mg (3 22.5 mg SUBCUT Q12W 08/13/20 10/14/20 History month) subcutaneous syringe metformin 1,000 mg tablet 1,000 mg PO BID 08/13/20 10/14/20 History multivitamin 1 tab PO DAILY 08/13/20 10/14/20 History omega-3 fatty acids 1,000 mg 1,000 mg PO DAILY 08/13/20 10/14/20 History capsule mesalamine 1 g [place] BEDTIME 11/16/20 11/16/20 History Allergies Allergy/AdvReac Type Severity Reaction Status Date / Time No Known Allergies Allergy Verified 08/13/20 09:23 Exam Vital signs: Vital Signs Temp 97.7 F 10/14/20 08:02 Pulse 82 10/14/20 08:02 Resp 12 10/14/20 08:02 BP 164/71 H 10/14/20 08:02 Pulse Ox 97 10/14/20 08:02 Weight 102 kg Body Mass Index 29.6 - Constitutional Present: no acute distress - Routine HEENT Exam Head: Present: normal inspection - Routine Respiratory Exam Present: CTAB - Routine Cardiovascular Exam Cardiovascular: Present: S1, S2 - Routine Abdominal Exam Present: soft, nontender Data - Labs CBC & Chem 7: 10/14/20 08:58 10/14/20 08:58 Labs: 10/14/20 08:58 Complete Blood Count Auto Diff Routine Comprehensive Met. Panel Routine Ferritin Routine IRON PROFILE Routine Laboratory Last Values WBC 5.6 X10*3/uL (4.8-10.8) 10/14/20 08:58 RBC 4.21 X10*6/uL (4.60-5.80) L 10/14/20 08:58 Hgb 13.1 g/dl (14.0-18.0) L 10/14/20 08:58 Hct 38.3 % (42-52) L 10/14/20 08:58 MCV 91.0 fL (80-98) 10/14/20 08:58 MCH 31.1 pg (27.0-33.0) 10/14/20 08:58 MCHC 34.2 g/dl (31.0-36.0) 10/14/20 08:58 RDW 13.1 % (11.0-16.0) 10/14/20 08:58 Plt Count 279 X10*3/uL (160-400) 10/14/20 08:58 MPV 10.3 fL (9.4-12.4) 10/14/20 08:58 Immature Gran % (Auto) 0.4 % (0.0-0.4) 10/14/20 08:58 Neut % (Auto) 70.2 % (45-73) 10/14/20 08:58 Lymph % (Auto) 17.0 % (20-40) L 10/14/20 08:58 Beckham % (Auto) 8.5 % (2-11) 10/14/20 08:58 Eos % (Auto) 3.4 % (0-4) 10/14/20 08:58 Baso % (Auto) 0.5 % (0-2) 10/14/20 08:58 Lymph # (Auto) 1.0 X10*3/uL (1.2-4.9) L 10/14/20 08:58 Beckham # (Auto) 0.5 X10*3/uL (0.1-1.2) 10/14/20 08:58 Eos # (Auto) 0.2 X10*3/uL (0.0-0.4) 10/14/20 08:58 Baso # (Auto) 0.0 X10*3/uL (0.0-0.2) 10/14/20 08:58 Abs Immat Gran (auto) 0.02 X10*3/uL (0.00-0.03) 10/14/20 08:58 Absolute Neuts (auto) 4.0 X10*3/uL (2.0-8.3) 10/14/20 08:58 Absolute Nucleated RBC 0.000 X10*3/uL (0.0-0.012) 10/14/20 08:58 Nucleated RBC % (auto) 0.0 /100WBC (0.0-0.2) 10/14/20 08:58 Sodium 137 mmol/L (135-145) 10/14/20 08:58 Potassium 4.6 mmol/l (3.3-5.1) 10/14/20 08:58 Chloride 105 mmol/L (96-108) 10/14/20 08:58 Carbon Dioxide 22 mmol/L (22-29) 10/14/20 08:58 Anion Gap 15 (12-20) 10/14/20 08:58 BUN 22 mg/dL (9-16) H 10/14/20 08:58 Creatinine 0.92 mg/dL (0.5-1.4) 10/14/20 08:58 Estim Creat Clear Calc 96.4 10/14/20 08:58 Estimated GFR > 60 10/14/20 08:58 Random Glucose 244 mg/dL (60-115) H 10/14/20 08:58 Calcium 9.1 mg/dL (8.4-10.2) 10/14/20 08:58 Iron 83 mcg/dL (45-160) 10/14/20 08:58 TIBC 280 mcg/dL (228-428) 10/14/20 08:58 % Saturation 30 % (15-50) 10/14/20 08:58 Unsat Iron Binding 197 ug/dL 10/14/20 08:58 Ferritin 269 ng/mL (20-250) H 10/14/20 08:58 Total Bilirubin 0.3 mg/dL (0.0-1.0) 10/14/20 08:58 AST 30 U/L (5-37) 10/14/20 08:58 ALT 69 U/L (0-40) H 10/14/20 08:58 Alkaline Phosphatase 114 U/L (39-117) 10/14/20 08:58 Total Protein 7.0 g/dL (6.5-8.0) 10/14/20 08:58 Albumin 4.2 g/dL (3.5-5.0) 10/14/20 08:58 Progress Note: A/P (1) Anemia Status: Acute Assessment and plan: This is a pleasant 70-year-old gentleman with a history of Prostate Cancer diagnosed a couple of years ago. He had radiation therapy for it. He completed that 09/18/2019. Subsequently he had a colonoscopy in April which revealed radiation proctitis. He has developed rectal bleeding over the past 4-6 weeks. Most likely bleeding is related to the proctitis. He saw Dr. Vela, who has prescribed mesalamine suppository. They have slowed things down. He had advised he can prescribe a medicinal enema, if this fails. CBC last month revealed a hemoglobin of 13.1. Iron studies: 83/280/30/269. Consistent with ACD. So no evidence for iron deficiency. PLAN: I checked his labs to see if he is anemic. Hgb is 13.1. His Iron Studies are c/w ACD. He he was intolerant to oral iron so he stopped taking it. He will have labs done at [facility], as ordered by Dr. Vela, to make sure he is not getting too anemic. He will return in a couple of months for a follow-up visit. Thanks, CC: Po. Villalba. - Time Spent With Patient Total time spent is greater than 50% in coordination of care (as documented) at patient's floor/unit and/or counseling patient: 25 - 35 minutes
--- NOTE | 2020-11-16 09:54 | MHC.HEMONCMA ---
Spoke with patient for his telehealth. He states he is doing good, nothing has changed medically for him. His allergies and medications were reviewed and updated. He will come in later this week for bloodwork. He will follow up in 6 months.
== END | disposition home or self-care (01) ==
LOC: HO.ONC 10-14 07:28
PROVIDERS: PCP Internal Medicine; Referring Provider Internal Medicine; Visit Provider Internal Medicine Medical Oncology
DX: D64.9 Anemia, unspecified (principal); K62.7 Radiation proctitis; Z85.46 Personal history of malignant neoplasm of prostate; Z92.3 Personal history of irradiation
CPT/HCPCS: 36415; 80053; 82728; 83540; 85025; 99204

== ENCOUNTER 2024-06-06 08:27 | Outpatient (AMB) | payer OTHER, SELFPAY ==
[2024-06-06 08:28] VITALS: BP 130/54; PULSE 77; O2SAT 97; BMI 28.5
--- NOTE | 2024-06-06 08:28 | A.OFFPC_ITS ---
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 Track Required: No Allergies No Known Allergies Allergy (Verified 06/06/24 08:38) Medication List - Last Reconciled 06/06/24 by Arina Casanova PA-C antiarthritic combination no.2 (glucosamine-chondroitin) 900 mg PO DAILY atorvastatin (Lipitor) 10 mg PO DAILY B-complex with vitamin C 1 tab PO DAILY blood sugar diagnostic (FreeStyle Lite Strips) test blood sugar ones a day cholecalciferol (vitamin D3) 25 mcg PO DAILY dulaglutide (Trulicity) 1.5 mg subcut QWEEK insulin glargine (Lantus Solostar U-100 Insulin) 40 units subcut QAM insulin lispro (Humalog KwikPen (U-100) Insulin) 5 units subcut TID lisinopril-hydrochlorothiazide 20-12.5 mg 1 tab PO BID multivitamin 1 tab PO DAILY omeprazole 40 mg PO BID 90 days Tobacco use date assessed: 12/11/23 Fall risk assessment: No Falls in past year Last assessed Fall Risk: 06/06/24 Dental Screening Dental Screen Date: 12/11/23 HPI having balance issues and ringing in his ears HPI Details 73 year old male with past history of di abetes mellitus, symone's esophagus, hypercholesterolemia, obstructive sleep apnea, prostate cancer last seen by Dr. Damon March 2024 coming in for acute problem. Patient states he has ringing in his ears which has been present for the last month. The ringing is almost constant and occasionally gets louder. He did call to make an appointment with ENT but is not due to be seen until November. Was seen in urgent care and was told he did not have any wax or infection in the ear. He sees [facility] for cervical spine pain and had an MRI done and has an appointment in a few weeks to go over this. [facility] Medical History (Updated 06/06/24 @ 10:59 by Arina Casanova PA-C) Hiatal hernia Radiation proctitis Lumbar degenerative disc disease Cataract Prostate cancer Obstructive sleep apnea Fatty liver Hypercholesterolemia Barretts esophagus Type 2 diabetes mellitus with hyperglycemia Surgical History (Updated 12/06/22 @ 10:34 by BARBARA Sauer) History of colonoscopy History of endoscopy History of removal of cyst History of cataract surgery Family History Father Testicular cancer Diabetes Hypertension Stroke Mother Colon cancer Breast cancer Paternal Uncle Myocardial infarction Brother Kidney problem Brother No problems noted. Social History (Updated 12/11/23 @ 10:51 by Antoni Damon MD) Housing: House Alcohol intake: current Alcohol intake frequency: a few times a week Alcohol type: wine Comment: oncea week = 3-4 drinks Patient Tobacco Use Status: Former Tobacco user Tobacco use type: Cigarette Cigarette Packs Per Day: 1 Years Smoked: quit 1999 e-Cigarette/Vaping Use: Never Used Second Hand Smoke Exposure: No service: No Current occupational status: retired Cognitive needs: No Hearing needs: No Vision needs: Yes (reading glasses) Questionnaire Thrive Questionnaire Date Thrive assessed: 12/11/23 I am a: Patient What is your living situation today?: I have a steady place to live Within the past 12 months, did the food you bought not last and you didn't have the money to get more?: Never true Within the past 12 months, did you worry whether your food would run out before you got money to buy more?: Never true Do you have trouble paying for medicines?: No Do you have trouble getting transportation to medical appointments?: No Do you have trouble paying your heating and electricity bill?: No Do you have trouble taking care of your child, family member or friend?: No Do you have trouble with day-to-day activities such as bathing, preparing meals, shopping, managing finances, etc.?: No Are you currently unemployed and looking for a job?: No Are you interested in more education?: No Please select the resources that you would like help with: None Currently or been in a relationship where the following occur: No concerns reported THRIVE Score: 0 AUDIT C Alcohol Use Questionnaire (AUDIT-C) 1. How often do you have a drink containing alcohol?: 4 or more times a week 2. How many drinks containing alcohol do you have on a typical day when you are drinking?: 1 or 2 3. How often do you have six or more drinks on one occasion?: Never Total Score: 4 Score Reviewed/Action Taken: Yes LOGAN-7 AMB Questionnaire LOGAN-7 Date LOGAN - 7 assessed: 12/11/23 Source: Developed by Drs. Earl Woodson, Ailyn Barron, Abner Blair and colleagues, with an educational walker from [employer]. Review of Systems Const Denies chills, Denies fever(s), Denies headache(s) and Denies poor appetite Eyes Reports no additional complaints ENT Denies dizziness, Denies headache(s), Reports neck pain and Reports tinnitus Card Denies chest pain, Denies syncope, Denies edema, Denies irregular heart rhythm, Denies lightheadedness and Denies dyspnea Resp Denies cough and Denies dyspnea GI Reports no additional complaints Reports no additional complaints Musc Reports no additional complaints, Denies abnormal gait and Reports neck pain Skin/Breast Reports system reviewed and no additional complaints, except as documented Neuro Denies abnormal gait, Denies dizziness, Denies syncope and Denies headache(s) Psych Reports no additional complaints Physical exam (Primary Care) Vital Signs: Last Vital Signs Pulse 77 06/06/24 08:28 BP 130/54 L 06/06/24 08:28 Pulse Ox 97 06/06/24 08:28 Oxygen Delivery Method Room Air 06/06/24 08:28 BMI result Body Mass Index 28.5 Tobacco/Smoking Status: Tobacco use Status Tobacco use date assessed 12/11/23 06/06/24 08:30 Patient Tobacco Use Status Former Tobacco user 06/06/24 08:30 Tobacco use type Cigarette 06/06/24 08:30 e-Cigarette/Vaping Use Never Used 06/06/24 08:30 Thrive Assessment: Date of Thrive Assessment Date Thrive assessed 12/11/23 06/06/24 08:30 Currently or been in a relationship where the following occur: No concerns reported Const General: cooperative, healthy appearing, comfortable and no acute distress Orientation/consciousness: patient oriented x3 HENMT Head: Yes normocephalic Ears: hearing grossly normal bilaterally, TM's normal bilaterally and Abnormal EAC present erythema on the right, EAC tenderness on the right and otic discharge clear (Clear/yellow) on the right General nose exam: Normal external nose present Mouth: oropharynx normal Eyes General: appearance normal, both eyes and all related structures Conjunctivae: conjunctivae normal Neck Neck: Yes full ROM and Yes no lymphadenopathy Resp Effort & Inspection: normal respiratory effort Auscultation: clear to auscultation bilaterally, no crackles, no rales, no rhonchi and no wheezes Cardio Rate: regular rate Rhythm: regular rhythm Skin General skin exam: no rashes or lesions noted Neuro General: patient oriented x3 Gait exam (Neuro): Normal gait present Extrem General: Yes normal to inspection, Yes full ROM and No edema Psych Affect: normal affect Attitude: cooperative Insight: Good insight present (Psych) Judgement: Good judgement present (Psych) Assessment and Plan Assessment & Plan (1) Otitis externa: Code(s): H60.90 - Unspecified otitis externa, unspecified ear Plan: Patient's right ear canal is tender, erythematous and edematous with yellow/clear drainage consistent with otitis externa. Will treat with Ciprodex drops x7 days. Advised patient to follow up if symptoms worsen or do not impr ove. Drainage was removed with curette and TM was visualized as intact without evidence of infection. (2) Tinnitus: Code(s): H93.19 - Tinnitus, unspecified ear Plan: Patient has been having ringing in the ears x1 month and has not had this problem in the past. This may be related to fluid buildup in the ears as a result of allergies. Advised patient to trial [id number] antihistamine and use of Flonase nasal spray for symptom management. Also offered a referral for a hearing test which patient has declined at this time. Follow up with ENT in November or sooner if symptoms worsen or do not improve. Plan This note was constructed using voice recognition software. While every effort has been made to ensure accuracy and office professionals, still areas may have been included sometimes these areas may affect the content or meeting of the given symptoms. Total time spent caring for the patient today was 30 minutes. This includes time spent before the visit reviewing the chart, time spent during the visit, and time spent after the visit and documentation. Medications: New fluticasone propionate 50 mcg/actuation (Flonase Allergy Relief) administer into each nostril 1 spray intranasal DAILY 16 grams 0RF ciprofloxacin-dexamethasone 0.3-0.1 % 4 drps otic (ears) BID 7.5 mL 0RF Coding Level of Care Code Est Pt Level 4 (28357) Diagnoses Otitis externa H60.90 Tinnitus H93.19
== END 2024-06-06 09:14 | disposition home or self-care (01) ==
PROVIDERS: PCP Internal Medicine
DX: H60.91 Unspecified otitis externa, right ear (principal); H93.11 Tinnitus, right ear
CPT/HCPCS: 99214

== ENCOUNTER 2024-10-03 15:14 | Outpatient (AMB) | payer OTHER, SELFPAY ==
--- NOTE | 2024-10-03 15:19 | A.OFFPC_ITS ---
Vital Signs 10/03/24 15:30 Height 6 ft 1 in Weight 223 lb 6 oz BMI 29.5 BP 130/48 L Blood Pressure Location Lt brachial Position Sitting Pulse 75 Pulse Source Pulse Oximeter Pulse Oximetry (%) 97 Oxygen Delivery Method Room Air Intake Visit Reasons: 6mth f/u Intake Note: The patient is here for a 6-month routine follow-up. The most recent A1C, reported by [facility], is 7.9%. 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 He has Carpal Tunnel Syndrome diagnosed on the right side, verified by nerve conduction studies. He reports that physical therapy was recommended, comprising ten sessions, and currently experiences decreased tingling. Regarding Hypercholesterolemia, the patient is on atorvastatin, also been noted to use hydrochlorothiazide. This suggests ongoing management due to cardiovascular risks associated with the patient's past medical history. The patient also has Type 2 Diabetes Mellitus and is being managed with Trulicity, currently increasing the dose to manage rising glucose levels noted through hemoglobin A1c levels. The patient has Sleep Apnea, finds it challenging to tolerate CPAP therapy despite trials over several months of nightly use, impacting sleep quality and duration. There is also mention of mild chronic anemia noted from recent laboratory tests, possibly related to past radiation treatment. 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 He experiences occasional rectal bleeding and altered bowel habits. Additionally, the patient reports tinnitus, an ongoing condition without effective resolution despite previous evaluations, and a history of rotator cuff tear on the right shoulder, noting residual discomfort but stability in this condition. [facility] Medical History (Updated 06/06/24 @ 10:59 by Arina Casanova PA-C) Hiatal hernia Radiation proctitis Lumbar degenerative disc disease Cataract Prostate cancer Obstructive sleep apnea Fatty liver Hypercholesterolemia Barretts esophagus Type 2 diabetes mellitus with hyperglycemia Surgical History History of colonoscopy History of endoscopy History of removal of cyst History of cataract surgery Family History Father Testicular cancer Diabetes Hypertension Stroke Mother Colon cancer Breast cancer Paternal Uncle Myocardial infarction Brother Kidney problem Brother No problems noted. Social History Housing: House Alcohol intake: current Alcohol intake frequency: a few times a week Alcohol type: wine Comment: oncea week = 3-4 drinks Patient Tobacco Use Status: Former Tobacco user Tobacco use type: Cigarette Cigarette Packs Per Day: 1 Years Smoked: quit 2000 Packs Per Year: 0 e-Cigarette/Vaping Use: Never Used Second Hand Smoke Exposure: No service: No Current occupational status: retired Cognitive needs: No Hearing needs: No Vision needs: Yes (reading glasses) Questionnaire PHQ-9 Over the last 2 weeks, how often have you been bothered by any of the following problems? 1. Little interest or pleasure in doing things: not at all 2. Feeling down, depressed, or hopeless: not at all 3. Trouble falling or staying asleep, or sleeping too much: not at all 4. Feeling tired or having little energy: not at all 5. Poor appetite or overeating: not at all 6. Feeling bad about yourself - or that you are a failure or have let yourself or your family down: not at all 7. Trouble concentrating on things, such as reading the newspaper or watching television: not at all 8. Moving or speaking so slowly that other people could have noticed. Or the opposite - being so fidgety or restless that you have been moving around a lot more than usual: not at all 9. Thoughts that you would be better off or of hurting yourself in some way: not at all Total score: 0 Depression Screening Interpretation: Negative Depression Screening Done: Yes 52846 - PHQ-9 Billing: Yes Source: Developed by Drs. Earl Woodson, Ailyn Barron, Abner Blair and colleagues, with an educational walker from [employer]. Thrive Questionnaire Date Thrive assessed: 10/03/24 I am a: Patient What is your living situation today?: I have a steady place to live Within the past 12 months, did the food you bought not last and you didn't have the money to get more?: Never true Within the past 12 months, did you worry whether your food would run out before you got money to buy more?: Never true Do you have trouble paying for medicines?: No Do you have trouble getting transportation to medical appointments?: No Do you have trouble paying your heating and electricity bill?: No Do you have trouble taking care of your child, family member or friend?: No Do you have trouble with day-to-day activities such as bathing, preparing meals, shopping, managing finances, etc.?: No Are you currently unemployed and looking for a job?: No Are you interested in more education?: No Please select the resources that you would like help with: None Currently or been in a relationship where the following occur: No concerns reported THRIVE Score: 0 AUDIT C Alcohol Use Questionnaire (AUDIT-C) 1. How often do you have a drink containing alcohol?: Monthly or less 2. How many drinks containing alcohol do you have on a typical day when you are drinking?: 1 or 2 3. How often do you have six or more drinks on one occasion?: Never Total Score: 1 LOGAN-7 AMB Questionnaire LOGAN-7 Date LOGAN - 7 assessed: 10/03/24 Feeling nervous, anxious, or on edge: 0 = Not at all Not being able to stop or control worryin = Not at all Worrying too much about different things: 0 = Not at all Trouble relaxin = Not at all Being so restless that it is hard to sit still: 0 = Not at all Becoming easily annoyed or irritable: 0 = Not at all Feeling afraid as if something awful might happen: 0 = Not at all Total LOGAN-7 score (0-4 normal; 5-9 mild; 10-14 moderate; 15-21 severe): 0 Source: Developed by Drs. Earl Woodson, Ailyn Barron, Abner Blair and colleagues, with an educational walker from [employer]. LOGAN-7 Assessment Billing LOGAN-7 Assessment Tool: LOGAN-7 Assessment 19668 Physical exam (Primary Care) Vital Signs: Last Vital Signs Pulse 75 10/03/24 15:30 BP 130/48 L 10/03/24 15:30 Pulse Ox 97 12/27/24 15:30 Oxygen Delivery Method Room Air 10/03/24 15:30 BMI result Body Mass Index 29.5 Tobacco/Smoking Status: Tobacco use Status Tobacco use date assessed 12/11/23 10/03/24 15:20 Patient Tobacco Use Status Former Tobacco user 10/03/24 15:20 Tobacco use type Cigarette 10/03/24 15:20 e-Cigarette/Vaping Use Never Used 10/03/24 15:20 PHQ-9: PHQ-9 Score PHQ-9: Total score 0 10/03/24 16:16 Depression Screening Interpretation: Negative Thrive Assessment: Date of Thrive Assessment Date Thrive assessed 10/03/24 10/03/24 15:35 Currently or been in a relationship where the following occur: No concerns reported Const General: alert; No acute distress Eyes Conjunctivae: conjunctivae normal Resp Auscultation: clear to auscultation bilaterally Cardio Rate: regular rate Rhythm: regular rhythm GI Inspection: Yes normal to inspection Extrem General: Yes normal to inspection and No edema Office Procedures Flu Questionnaire Does the patient have a severe egg allergy?: No Does the patient have severe life threatening allergies?: No Does the patient have a fever or illness today?: No Has the patient ever had Guillain-[place] Syndrome?: No Has the patient ever had any past reaction to a flu shot?: No Immunizations Fluarix Triv 2581-7537 (PF) 45 mcg (15 mcg x 3)/0.5 mL IM syringe Performing Provider: Antoni Damon MD [facility] Administered by: LUCIO Maxwell on 10/03/24 15:30 Dose Route Admin Location Dispensed Lot Number Expiration Date [facility] Assistant Pressman 0.5 mL IM Right Deltoid 0.5 mL [id number] 04/06/25 [id number] [employer] VIS Given Date VIS Provided VIS Publication Date 10/03/24 Single Vaccine 21 Eligibility Eligibility Date Funding Source Not [facility] Eligible 10/03/24 Private Coding Level of Care Code Est Pt Level 4 (26162) Complex EM visit Add On G2211 Diagnoses Type 2 diabetes mellitus with hyperglycemia, without long-term current use of insulin E11.65 Diabetes mellitus intermediate insulin use: without intermediate use Foreman's esophagus without dysplasia K22.70 Foreman's esophagus type: without dysplasia Hypercholesterolemia E78.00 Prostate cancer C61 Hypertension I10 Carpal tunnel syndrome, right G56.01 Additional Codes LOGAN-7 Assessment Billing - LOGAN-7 Assessment Tool: LOGAN-7 Assessment 54837 ([id number]) PHQ-9 - 30713 - PHQ-9 Billing: Yes ([id number]) Assessment & Plan Assessment & Plan (1) Type 2 diabetes mellitus with hyperglycemia: Comment: Dr./ West Code(s): E11.65 - Type 2 diabetes mellitus with hyperglycemia Category: Medical Qualifiers: Diabetes mellitus middle or intermediate school principal insulin use: without middle or intermediate school principal use Qualified Code(s): E11.65 - Type 2 diabetes mellitus with hyperglycemia (2) Barretts esophagus: Comment: Status post radiofrequency ablation January 2010, EGD October Code(s): K22.70 - Foreman's esophagus without dysplasia Category: Medical Qualifiers: Foreman's esophagus type: without dysplasia Qualified Code(s): K22.70 - Foreman's esophagus without dysplasia (3) Hypercholesterolemia: Code(s): E78.00 - Pure hypercholesterolemia, unspecified Category: Medical (4) Prostate cancer: Comment: May 2018 Dr. Tilley radiotherapy November 2019. has a ff up Code(s): C61 - Malignant neoplasm of prostate Category: Medical (5) Hypertension: Code(s): I10 - Essential (primary) hypertension Category: Medical (6) Carpal tunnel syndrome, right: Comment: March 2024 Code(s): G56.01 - Carpal tunnel syndrome, right upper limb Category: Medical Plan - Continue physical therapy for Carpal Tunnel Syndrome to manage symptoms and avoid surgical intervention unless symptoms worsen. - Maintain atorvastatin therapy for hypercholesterolemia management. - Adjust Trulicity dosage to manage Type 2 Diabetes Mellitus better and recommend routine glycemic monitoring to assess effectiveness. - Monitor and evaluate Sleep Apnea; consider alternative sleep aids or devices if CPAP remains intolerable. - Recommend CBC monitoring for chronic anemia to determine any need for further hematologic evaluation. - Address radiation proctitis symptoms with possible oncologist referral for symptom management, including rectal suppository discussions. - Monitor and sexual assault counsellor on tinnitus management; reevaluation suggested if symptoms significantly worsen. - No acute intervention necessary for the stable rotator cuff condition at this time. - Emphasize the importance of hydration and routine follow-up for preventative care and chronic condition management. Orders: Orders Influenza 1357-1083 Immunization Today Z23 - Encounter for immunization AMB Hemoglobin A1c Today E11.65 - Type 2 diabetes mellitus with hyperglycemia Comprehensive Met. Panel Today E11.65 - Type 2 diabetes mellitus with hyperglycemia Ferritin Today E11.65 - Type 2 diabetes mellitus with hyperglycemia Hemoglobin A1c Today E11.65 - Type 2 diabetes mellitus with hyperglycemia Vitamin B12 and Folate Today E11.65 - Type 2 diabetes mellitus with hyperglycemia PSA,Total (Free>4and<10) Today E11.65 - Type 2 diabetes mellitus with hyperglycemia Complete Blood Count Auto Diff Today E11.65 - Type 2 diabetes mellitus with hyperglycemia Free T4 (Free Thyroxine) Today E11.65 - Type 2 diabetes mellitus with hyperglycemia Thyroid Stimulating Hormone Today E11.65 - Type 2 diabetes mellitus with hyperglycemia Creatinine Urine Today E11.65 - Type 2 diabetes mellitus with hyperglycemia Lipid Panel Today E11.65 - Type 2 diabetes mellitus with hyperglycemia, E78.00 - Pure hypercholesterolemia, unspecified IRON PROFILE Today E11.65 - Type 2 diabetes mellitus with hyperglycemia UA CC w/rflx Micro + Cult Today E11.65 - Type 2 diabetes mellitus with hyperglycemia, R30.0 - Dysuria Medications: New dulaglutide (Trulicity) 3 mg (0.5 mL) subcut QWEEK 2 mL 0RF E11.65 - Type 2 diabetes mellitus with hyperglycemia Refilled atorvastatin (Lipitor) 10 mg PO DAILY 90 tabs 2RF E11.65 - Type 2 diabetes mellitus with hyperglycemia Discontinued ciprofloxacin-dexamethasone 0.3-0.1 % Discontinued Reason: Patient Completed Course 4 drps otic (ears) BID 7.5 mL 0RF
[2024-10-03 15:30] VITALS: BP 130/48; PULSE 75; O2SAT 97; BMI 29.5
== END 2024-10-03 16:19 | disposition home or self-care (01) ==
PROVIDERS: PCP Internal Medicine; Visit Provider Internal Medicine
DX: E11.65 Type 2 diabetes mellitus with hyperglycemia (principal); K22.70 Barrett's esophagus without dysplasia; E78.00 Pure hypercholesterolemia, unspecified; C61 Malignant neoplasm of prostate; I10 Essential (primary) hypertension; G56.01 Carpal tunnel syndrome, right upper limb; Z23 Encounter for immunization

== ENCOUNTER → 2024-10-03 15:14 | Outpatient (BNVA) | payer OTHER, SELFPAY | PROVIDERS: PCP Internal Medicine; Visit Provider Internal Medicine | DX: E11.65 Type 2 diabetes mellitus with hyperglycemia (principal); K22.70 Barrett's esophagus without dysplasia; E78.00 Pure hypercholesterolemia, unspecified; Z23 Encounter for immunization; C61 Malignant neoplasm of prostate; I10 Essential (primary) hypertension; G56.01 Carpal tunnel syndrome, right upper limb; E11.9 Type 2 diabetes mellitus without complications; G47.30 Sleep apnea, unspecified; Z79.85 Long-term (current) use of injectable non-insulin antidiabetic drugs; Z79.899 Other long term (current) drug therapy | CPT/HCPCS: 90471; 90656; 96127 ==

== ENCOUNTER 2024-12-08 06:00 | Outpatient (REF) | payer MEDICARE, SELFPAY ==
--- OUTSIDE RECORDS SUMMARY | 2024-12-08 06:06 | XMS_ITS | Continuity of Care Document ---
Author Organization [place] - [facility], [facility] Address [address] [place] [id number] Care Team Providers Care Director Of Rehabilitation Name Role Phone MARVAHANDY Primary Care Provider [phone] Assessment Encounter Date Assessment Date Assessment LastModified by Organization Details LastModified Time 11/19/2024 11/19/2024 Patient presents with non-pulsatile tinnitus. Audiometric testing demonstrates bilateral neurosensory hearing loss without significant asymmetry. Speech recognition is good and amplification is not currently indicated. We reviewed that unfortunately there is no known medical nor surgical cure for tinnitus. I have recommended the use of hearing protection as needed. They should also use masking techniques with background noises that modulate to decrease perception of non-pulsatile tinnitus. Other therapies to improve tolerance of tinnitus were reviewed, to include biofeedback, sound retraining, and cognitive behavioral therapy. We discussed that high stress, low sleep and high caffeine intake can also be contributing factors. A brochure was provided to patient to read at home. Recommend repeat audiometric testing in 1-2 years or with perceived change. [email or web address] Not available 11/19/2024 10:27:09 Plan of Treatment Reminders Order Date Submit Date Provider Last Modified By Organization Details Last Modified Time Details Appointments None record ed. Lab None record ed. Referral None record ed. Procedures None record ed. Surgeries None record ed. Imaging None record ed. Medication Orders None record ed. Patient TargetsNo targets recorded. Patient InstructionsNo instructions recorded. Reason for Referral None Reported. Results Created Date Observation Date Name Description Value Unit Range Abnormal Flag Note LastModifiedBy Organization Detail LastModifiedTime 11/19/19 25 audio gram No observ ation record ed. BARCODE Not Available 2024 11:59:24 Result Notes None recorded. Problems Name Problem SNOMED Code Status Onset Date Resolution Date Notes Provider Name and Address Organization Details Recorded Time Sensorineur al hearing loss of bilateral ears 991842336 Active 2024 NAYLA LAWLER, COLTON [address], [phone], [facility] 09:50:42 Bilateral tinnitus 9089463237461 Active 2024 CHANNING EVANGELISTA PA-C [address], [phone], [facility] - [facility] 10:22:57 Problem Notes None recorded. Procedures Surgical History Date Name Laterality Status Provider Name and Address Organization Details Recorded Time 11/19/2024 Comp Audio with Tymps (02887 & 75655) completed NAYLA LAWLER, COLTON 100 [facility],[address], [address], [facility] 11/19/2024 09:50:33 Imaging Results None recorded. Procedure Notes None recorded. Medical Equipment None Reported. Allergies No known drug allergies Medications Name Sig Start Date Stop Date Status Note LastModified by Organization Details LastModified Time freestyle lite test strp active Not Available Not Available No t Available celecoxib 200 mg capsule active Not Available Not Available N ot Available atorvastatin 10 mg tablet active Not Available Not Available No t Available lisinopril 20 mg-hydrochlorot hiazide 12.5 mg tablet active Not Available Not Available Not Available omeprazole 40 mg capsule,delayed release active Not Available Not Available Not Available morphine 15 mg immediate release tablet TAKE 1 TABLET BY MOUTH EVERY 6 HOURS FOR 5 DAYS NEEDED FOR PAIN active Not Available Not Available No t Available fluticasone propionate 50 mcg/actuation nasal spray,suspensio n active Not Available Not Available Not Available ipratropium bromide 21 mcg (0.03 %) nasal spray active Not Available Not Available Not Available amoxicillin 875 mg-potassium clavulanate 125 mg tablet active Not Available Not Available No t Available oxycodone 5 mg tablet active Not Available Not Available Not Available ciprofloxacin 0.3 %-dexamethasone 0.1 % ear drops,suspensio n active Not Available Not Available Not Available Lantus Solostar U-100 Insulin 100 unit/mL (3 mL) subcutaneous pen active Not Available Not Available Not Available Humalog KwikPen (U-100) Insulin 100 unit/mL subcutaneous active Not Available Not Available Not Available Trulicity 1.5 mg/0.5 mL subcutaneous pen injector active Not Available Not Available Not Available Trulicity 3 mg/0.5 mL subcutaneous pen injector active Not Available Not Available Not Available FreeStyle Alem 3 Plus Sensor device active Not Available Not Available Not Available Vitals Date Recorded Body height Body mass index (BMI) Body weight Provider Name and Address Organization Details Last Updated DateTime 11/19/2024 185.42 cm 29.7 kg/m2 778795.28 g Francia Kathleen MA - [facility] 11/19/2024 10:11:18 Social History None recorded. Functional Status None recorded. Mental Status None recorded. Family History Nothing Reported. Medical History Condition Response Cancer Y Arthritis Y Hypertension Y Past Encounters Encounter ID Performer Location Encounter Start Date Encounter Closed Date Diagnosis/Indication Diagnosis SNOMED-CT Code Diagnosis ICD10 Code Diagnosis Note [id number] CHANNING EVANGELISTA PA-C [facility] [address] [address] 11/19/2024 09:28:29 11/19/2024 10:27:41 Bilateral tinnitus 3753143524 102 H93.13 Sensorineu ral hearing loss of bilateral ears 056618513 H90.3 [id number] COLTON MAY [facility] [address] [address] 11/19/2024 09:46:59 11/20/2024 07:22:44 Sensorineural hearing loss of bilateral ears 608308933 H90.3 Audiologic al evaluation results: {{Normal sloping* M ild Modera te Moderat bere-severe Severe Pr ofound Nor mal auditory thresholds }} to {{mild mod erate mode rately-sev ere* sever e profound with}} {{sensorin eural hearing loss with* cond uctive hearing loss with mixed hearing loss with}} {{excellen t* good fa ir poor no t measurable }} word recognitio n, bilaterall y. Tympanomet ry:Right Ear:{{Type A* Type As Type Ad Type C Type C, shallow & rounded Ty pe B Type B with large volume Cou ld not maintain a hermetic seal}}Left Ear:{{Type A Type As Type Ad* Type C Type C, shallow & rounded Ty pe B Type B with large volume Cou ld not maintain a hermetic seal}} Health Concerns Section Related Observation LastModified by Organization Detai ls LastModified Time None Recorded Concern Status LastModified by Organization Details LastModified Time None Recorded Payers Encounter Date Sequence Insurance Name Policy Number Policy Patel Covered Member ID Patel Member ID Guarantor Name 11/19/2024 2 [place] [id number] Trevor Elmore Altagracia [id number] Trevor Frias 11/19/2024 1 [place] [employer] Trevor Elmore Altagracia [id number] Trevor Frias Notes Date Note Type Note Provider Name and Address Organization Details Recorded Time 11/19/2024 text/html Audiological Evaluation HPIReported bypatient.Hearing loss perceived:gradual onset Tinnitus reported:left ear COLTON MAY [address], [address], [facility] - [facility] 11/19/2024 09:56:17 11/19/2024 text/html 74 year old male presents for evaluation of ears and hearing. Reports 4-5 months ago he developed ringing tinnitus in the left greater than right ear. He reports he has had this intermittently in the past but it is now constant. About 4 months ago he had two episodes of feeling like he was drifting to the left when ambulating. He feels his hearing is overall good. There is no otalgia and no otorrhea. He has a history of occupational noise exposure, usually protected. He had annual hearing tests. Was never told he had any hearing loss. There is a family history of mid-life hearing loss on his mother's side. There is no personal history of recurrent otitis and no otologic surgery. CHANNING EVANGELISTA PA-C 100 [facility],[address], [address], [facility] - [facility] 11/19/2024 10:27:32
--- OUTSIDE RECORDS SUMMARY | 2024-12-08 06:06 | XMS_ITS | Data Portability ---
Author Organization [place] - [facility], Allergy Address [address] [place] [address] Care Team Providers Care Study Abroad Advisor Name Role Phone HANDY DURHAM Primary Care Provider Assessment Encounter Date Assessment Date Assessment LastModified [...] perceived change. [email or web address] Not available 11/19/2024 10:27:09 11/19/2024 11/19/2024 Recommendations: Follow up with referring provider. [email or web address] Not available 11/19/2024 09:47:53 Plan of Treatment Reminders Order Date Submit [...] Sensorineur al hearing loss of bilateral ears [id number] Active 2024 NAYLA NURIS, [place] [address] [facility],[place] [address], [place], [address], [facility] 09:50:42 Bilateral tinnitus 5010707217752 Active 2024 CHANNING EVANGELISTA PA-C [address] [facility], [address] [facility], [place], [address], [facility] 10:22:57 Problem Notes None recorded. Procedures Surgical History Date Name Laterality Status Provider Name and Address Organization Details Recorded Time 11/19/2024 Comp Audio with Tymps (85323 & 29195) completed NAYLA LAWLER, [place] [address] [facility],[address], [address], [facility] 11/19/2024 09:50:33 Imaging Results Imaging Date Name Status LastModified by Organiz ation Details LastModified Time 11/19/2024 audiogram completed BARCODE Information no t available 11/19/2024 11:59:24 Procedure Notes None recorded. Medical Equipment None [...] Updated DateTime 11/19/2024 185.42 cm 29.7 kg/m2 752759.28 g Francia Kathleen [place] - [facility] 11/19/2024 10:11:18 Social History None recorded. Functional Status None recorded. Mental Status None recorded. Family History Nothing Reported. Medical History Condition Response Arthritis Y Cancer Y Hypertension Y Past Encounters Encounter ID Performer Location Encounter Start Date Encounter Closed Date Diagnosis/Indication Diagnosis SNOMED-CT Code Diagnosis ICD10 Code Diagnosis Note [id number] CHANNING EVANGELISTA PA-C [facility] [address] [address] 11/19/2024 09:28:29 11/19/2024 10:27:41 Bilateral tinnitus 8119874837 102 H93.13 Sensorineu ral hearing loss of bilateral ears 047022462 H90.3 [id number] COLTON MAY [facility] [address] [address] 11/19/2024 09:46:59 11/20/2024 07:22:44 Sensorineural hearing loss of bilateral ears 564952711 H90.3 Audiologic al evaluation results: {{Normal sloping* [...] by Organization Details LastModified Time None Recorded Advance Directives Directive None Recorded Payers Encounter Date Sequence Insurance Name Policy Number Policy Patel Covered Member ID Patel Member ID Guarantor Name 11/19/2024 2 [place] [id number] Trevor Catarina Frias [id number] Trevor Frias 11/19/2024 1 [place] [employer] Trevor Catarina [place] [id number] Trevor Altagracia 11/19/2024 2 [place] [id number] Trevor Frias [id number] Trevor Mcculloughbert 11/19/2024 1 [place] [employer] [place] Trevor Frias [id number] Trevor Frias Notes Date Note Type Note Provider Name and Address Organization Details Recorded Time 11/19/2024 text/html Audiological Evaluation HPIReported bypatient.Hearing loss perceived:gradual onset Tinnitus reported:left ear NAYLA LAWLER, [facility] [address] [facility],[address], [address], [facility] - [facility] 11/19/2024 09:56:17 11/19/2024 text/html 74 year [...] and no otologic surgery. CHANNING EVANGELISTA PA-C [address] [place] [address], [phone], [facility] - [facility] 11/19/2024 10:27:32
--- OUTSIDE RECORDS SUMMARY | 2024-12-08 06:06 | XMS_ITS | Continuity of Care Document ---
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 [email or web address] Not [...] Sensorineur al hearing loss of bilateral ears [id number] Active 2024 COLTON MAY [address] [address], [place], [address], [facility] - [facility] 5 09:50:42 Bilateral tinnitus 4206989759915 Active 2024 CHANNING EVANGELISTA PA-C [address] [address], [place], [address], [facility] - [facility] 5 10:22:57 Problem Notes None recorded. Procedures Surgical History Date Name Laterality Status Provider Name and Address Organization Details Recorded Time 11/19/2024 Comp Audio with Tymps (77990 & 06057) completed NAYLA LAWLER, [facility] 100 [facility] [address], [place], [address], [facility] - [facility] 11/19/2024 09:50:33 Imaging Results None recorded. Procedure [...] Updated DateTime 11/19/2024 185.42 cm 29.7 kg/m2 615067.28 g Francia Kathleen [place] - [facility] 11/19/2024 10:11:18 Social History None recorded. Functional Status None recorded. Mental Status None recorded. Family History Nothing Reported. Medical History Condition Response Cancer Y Arthritis Y Hypertension Y Past Encounters Encounter ID Performer Location Encounter Start Date Encounter Closed Date Diagnosis/Indication Diagnosis SNOMED-CT Code Diagnosis ICD10 Code Diagnosis Note [id number] CHANNING EVANGELISTA PA-C [facility] [address] [address] 11/19/2024 09:28:29 11/19/2024 10:27:41 Bilateral tinnitus 1704329222 102 H93.13 Sensorineu ral hearing loss of bilateral ears 611401769 H90.3 [id number] COLTON MAY [facility] [address] [address] 11/19/2024 09:46:59 11/20/2024 07:22:44 Sensorineural hearing loss of bilateral ears 097941893 H90.3 Audiologic al evaluation results: {{Normal sloping* [...] Name 11/19/2024 2 [place] [id number] Trevor Frias [id number] Trevor Frias 11/19/2024 1 [place] [facility] [employer] Trevor Frias [id number] Trevor Frias Notes Date Note Type Note Provider Name and Address Organization Details Recorded Time 11/19/2024 text/html Audiological Evaluation HPIReported bypatient.Hearing loss perceived:gradual onset Tinnitus reported:left ear COLTON MAY 100 [facility],[address], [address], [facility] 11/19/2024 09:56:17 11/19/2024 text/html 74 year old [...] no otologic surgery. CHANNING EVANGELISTA PA-C 100 [facility],[address], [address], [facility] - [facility] 11/19/2024 10:27:32
--- OUTSIDE RECORDS SUMMARY | 2024-12-08 06:06 | XMS_ITS | Continuity of Care Document ---
Author Organization [facility] [address] [place] [address] Phone [phone] Care Team Providers Care Global Ceo Name Role Phone Antoni Damon Care Team Information Crushing Foreman + [phone] Problems Active Problems Provider Date Type 2 diabetes mellitus Gee Rodriguez M.D. O nset: 04/20/2022 Pure hypercholesterolemia Gee Rodriguez M.D. Onset: 04/20/2022 Essential hypertension Gee Rodriguez M.D. Ons et: 04/20/2022 Gastro-esophageal reflux dis ease with esophagitis Gee Rodriguez M.D. Onset: 04/20/2022 Insulin treated type 2 diabetes mellitus Gee fountain M.D. Onset: 07/20/2023 Sleep apnea Gee Rodriguez M.D. Onset: Radiation proctitis Gee Rodriguez M.D. Onset: 08/02/2022 History of malignant neoplasm of prostate Gee Rodriguez M.D. Onset: 08/02/2022 Gastroesophageal reflux disease Gee Rodriguez M.D. Onset: 04/20/2022 Social History Type Date Description Comments Sex Unknown Tobacco Use Start: Unknown End: Unknown Quit ETOH Use Occasionally consumes alcoho l Tobacco Use Start: Unknown End: Unknown Patient is a former smoker Allergies and adverse reactions Description No Known Drug Allergies Medications Active Medications SIG Qnty Indications Order ing Provider Date Gtmkgdksb4rr/0.5ML Solution Auto-Inject Inject 3 MG Subcutaneously Every Week 2ml E11.9 Megan Ambriz M.D. 09/24/2024 Z79.4 Xtdaerlp223xe Capsules 1 by mouth every day as needed 30caps Gee Rutherfordenstein, M.D. 11/21/2023 Lisinopril-Hydrochlor toezxfcvn08-57.5mg Tablets 1 bid Gee Rodriguez M.D. 07/20/2023 BD Pen NDL 81ZW6YU 31G X31G X 5 mm Use Before Meals And AT Bedtime 100units Gee Rodriguez M.D. 08/30/2022 Atorvastatin Yskxbuq06fr Tablets 1 by mouth every day 90tabs Gee fountain M.D. 04/20/2022 Lantus Zxjkqpal477Bcvr/ML Solution Pen-Inject Inject 40 Unit Subcutaneously AT Bedtime 30units E11Chao9 Megan Ambriz M.D. Freestyle Lite TestStrips 1 strip to skin every day Dx: E11.9 100units E11.Ronit Ambriz M.D. Humalog Wdgxftk613Mjbv/ML Solution Pen-Inject Inject 6-12 Units Subcutaneously Before Meals, Max Daily Dose Of 36 Units 15units Gee Rodriguez M.D. Dynavsppwd61fe Capsules DR 1 tab by mouth twice a day 90blaine Rodriguez M.D. History Medications Freestyle Alem 3/Sensor/Glucose Monitoring Smxxyo9Pgmrxx Misc Change Sensor Every 14 Days 2units E11Alyx Ambriz M.D. 07/24/2024 - 07/24/2024 Z79.4 Freestyle Alem 3 Plus/Sesor/Glucose Monitoring SystemMisc Apply new sensor every 15 days 6units E11Alyx Ambriz M.D. 06/05/2024 - 07/24/2024 Z79.4 Vital Signs Date Vital Result Comment 09/24/2024 8:36am BP Systolic 136 mmHg BP Diastolic 60 mmHg Heart Rate 74 /min Height 73 inches 6'1 Weight 226.12 lb BMI (Body Mass Index) 29.8 kg/m2 Results Test Acquired Date Facility Test Result H/L Range Note Laboratory test finding 09/24/2024 [facility] Glucose Fingerstick 227 Albumin/Creatini ne Ratio, Random Urine 09/24/2024 [facility] Creatinine, Urine 110.8 mg/dL Not Estab. Albumin, Urine 6.1 ug/mL Not Estab. Alb/Creat Ratio 6 mg/gcreat 0-29 1 Hemoglobin A1c 09/18/2024 [facility] Hemoglobin A1c 7.9 % High 4.8-5.6 2 Laboratory test finding 06/16/2024 [facility] Glucose Fingerstick 159 Hemoglobin A1c 06/10/2024 [facility] Hemoglobin A1c 7.0 % High 4.8-5.6 3, 4 Laboratory test finding 03/11/2024 [facility] Glucose Fingerstick 181 Hemoglobin A1c 03/07/2024 [facility] Hemoglobin A1c 7.3 % High 4.8-5.6 5, 6 Laboratory test finding 11/21/2023 [facility] Glucose Fingerstick 168 Laboratory test finding 11/15/2023 [facility] Hemoglobin A1c 7.2 % High (4.0-5.6) 7 Laboratory test finding 07/20/2023 [facility] Glucose Fingerstick 189 Laboratory test finding 07/10/2023 [facility] Hemoglobin A1c 7.3 % High (4.0-5.6) 8 Laboratory test finding 03/12/2023 [facility] Glucose Fingerstick 155 Laboratory test finding 03/10/2023 [facility] Hemoglobin A1c 7.0 % High (4.0-5.6) 9 Laboratory test finding 11/29/2022 [facility] Glucose Fingerstick 186 Laboratory test finding 11/28/2022 [facility] Hemoglobin A1c 7.0 % High (4.0-5.6) 10 Laboratory test finding 08/02/2022 [facility] Glucose Fingerstick 158 Urinary Microalbumin 07/31/2022 [facility] Micro-Albumin <12.0 mg/L (<20) 11 Malb/Creat Ratio Unable to calcul <SEE NOTE> MG/GM (0-20) 12 Urine Creat For Micro Albumin 122.8 mg/dL Laboratory test finding 07/31/2022 [facility] Hemoglobin A1c 7.2 % High (4.0-5.6) 13 Laboratory test finding 04/20/2022 [facility] Glucose Fingerstick 192 Laboratory test finding 04/20/2022 [facility] Hemoglobin A1c 7.6% 1 Normal: 0 - 29 Moderately increased: 30 - 300 Severely increased: >300 2 Prediabetes: 5.7 - 6 .4 Diabetes: >6.4 Glycemic control for adults with diabetes: <7.0 3 A courtesy copy of t his report has been sent to the patient STANDING ORDER EVERY 3 M ONT 4 Prediabetes: 5.7 - 6 .4 Diabetes: >6.4 Glycemic control for adults with diabetes: <7.0 5 STANDING ORDER EVERY 3 M ONTHS 6 Prediabetes: 5.7 - 6 .4 Diabetes: >6.4 Glycemic control for adults with diabetes: <7.0 7 MONITORING: In known diabetic patients, hemoglobin A1c targets should be discussed with health care provider. DIAGNOSTIC USE: The [place] Diabetes Association (ADA) and the World Health Organization (WHO) recommend the use of HbA1c to diagnose diabetes using a threshold of 6.5%. Patients who have an HbA1c between 5.7% and 6.4% are considered at increased risk for developing diabetes in the future. CAUTION: Falsely low HbA1c results may be observed in patients with hemolytic anemia, homozygous forms of abnormal hemoglobin (e.g. SS, CC, SC), , recent blood loss or hemoglobin F greater than 7%. Fructosamine may be used as an alternate test in these cases. REFERENCE: ADA: Standards of Medical Care in Diabetes 2020, The Journal of Clinical and Applied Research and Education Volume 43, Supplement 1 8 MONITORING: In known diabetic patients, hemoglobin A1c targets should be discussed with health care provider. DIAGNOSTIC USE: The [place] Diabetes Association (ADA) and the World Health Organization (WHO) recommend the use of HbA1c to diagnose diabetes using a threshold of 6.5%. Patients who have an HbA1c between 5.7% and 6.4% are considered at increased risk for developing diabetes in the future. CAUTION: Falsely low HbA1c results may be observed in patients with hemolytic anemia, homozygous forms of abnormal hemoglobin (e.g. SS, CC, SC), , recent blood loss or hemoglobin F greater than 7%. Fructosamine may be used as an alternate test in these cases. REFERENCE: ADA: Standards of Medical Care in Diabetes 2020, The Journal of Clinical and Applied Research and Education Volume 43, Supplement 1 9 MONITORING: In known diabetic patients, hemoglobin A1c targets should be discussed with health care provider. DIAGNOSTIC USE: The [place] Diabetes Association (ADA) and the World Health Organization (WHO) recommend the use of HbA1c to diagnose diabetes using a threshold of 6.5%. Patients who have an HbA1c between 5.7% and 6.4% are considered at increased risk for developing diabetes in the future. CAUTION: Falsely low HbA1c results may be observed in patients with hemolytic anemia, homozygous forms of abnormal hemoglobin (e.g. SS, CC, SC), , recent blood loss or hemoglobin F greater than 7%. Fructosamine may be used as an alternate test in these cases. REFERENCE: ADA: Standards of Medical Care in Diabetes 2020, The Journal of Clinical and Applied Research and Education Volume 43, Supplement 1 10 MONITORING: In known diabetic patients, hemoglobin A1c targets should be discussed with health care provider. DIAGNOSTIC USE: The [place] Diabetes Association (ADA) and the World Health Organization (WHO) recommend the use of HbA1c to diagnose diabetes using a threshold of 6.5%. Patients who have an HbA1c between 5.7% and 6.4% are considered at increased risk for developing diabetes in the future. CAUTION: Falsely low HbA1c results may be observed in patients with hemolytic anemia, homozygous forms of abnormal hemoglobin (e.g. SS, CC, SC), , recent blood loss or hemoglobin F greater than 7%. Fructosamine may be used as an alternate test in these cases. REFERENCE: ADA: Standards of Medical Care in Diabetes 2020, The Journal of Clinical and Applied Research and Education Volume 43, Supplement 1 11 The urine microalbum in test is designed to monitor renal function. When screening for [place] proteinuria, urine electrophoresis is recommended. 12 Unable to calculate 13 MONITORING: In known diabetic patients, hemoglobin A1c targets should be discussed with health care provider. DIAGNOSTIC USE: The [place] Diabetes Association (ADA) and the World Health Organization (WHO) recommend the use of HbA1c to diagnose diabetes using a threshold of 6.5%. Patients who have an HbA1c between 5.7% and 6.4% are considered at increased risk for developing diabetes in the future. CAUTION: Falsely low HbA1c results may be observed in patients with hemolytic anemia, homozygous forms of abnormal hemoglobin (e.g. SS, CC, SC), , recent blood loss or hemoglobin F greater than 7%. Fructosamine may be used as an alternate test in these cases. REFERENCE: ADA: Standards of Medical Care in Diabetes 2020, The Journal of Clinical and Applied Research and Education Volume 43, Supplement 1 Medical Devices Description No Information Available Encounters Type Date Location Provider Dx Diagnosis Office Visit 09/24/2024 8:45a Main Office Riyana Khalifa, PA E11.9 Type 2 diabet es mellitus without complications Z79.4 [facility] (current) use of insulin I10 Essential (primary) hypertension G47.30 Sleep apnea, unspeci fied Assessments Date Code Description Provider 09/24/2024 E11.9 Type 2 diabetes mellitus wit hout complications BUBBA Delgado 09/24/2024 Z79.4 [facility] (current) use of i nsulin BUBBA Delgado 09/24/2024 I10 Essential hypertension BUBBA Melara 09/24/2024 G47.30 Sleep apnea BUBBA Delgado Plan of Treatment Future Appointment(s):* 01/06/2025 10:45 am - BUBBA Delgado at Main Office 03/11/2024 - Gee Rodriguez M.D.* E11.9 Type 2 diabetes mellitus without complications * Z79.4 [facility] (current) use of insulin * K62.7 Radiation proctitis * Z85.46 History of malignant neoplasm of prostate * G47.30 Sleep apnea Functional Status Description No Information Available Mental Status Description No Information Available Referrals Description No Information Available
[2024-12-08 06:22] LABS: MANUAL DIFF FLAG NO
[2024-12-08 07:10] LABS: Basophils Absolute Auto 0.1 X10*3/uL (0.0-0.2); Basophils Percent Auto 0.9 % (0-2); Eosinophils Absolute Auto 0.2 X10*3/uL (0.0-0.4); Eosinophils Percent Auto 3.7 % (0-4); Hematocrit 38.9 % (42.0-52.0); Hemoglobin 13.5 g/dl (14.0-18.0); Imm Gran Abs Auto 0.03 X10*3/uL (0.00-0.03); Imm Gran Pct Auto 0.6 % (0.0-0.4); Lymphocytes Absolute Auto 1.1 X10*3/uL (1.2-4.9); Mean Corpuscular HGB Conc 34.7 g/dl (31.0-36.0); Mean Corpuscular Hemoglobin 30.4 pg (27.0-33.0); Mean Corpuscular Volume 87.6 fL (80.0-98.0); Mean Platelet Volume 9.8 fL (9.4-12.4); Monocytes Absolute Auto 0.5 X10*3/uL (0.1-1.2); Monocytes Percent Auto 8.7 % (2-11); Neutrophils Absolute Auto 3.5 x10*3/uL (2.0-8.3); Neutrophils Percent Auto 65.1 % (45-73); Platelet Count 307 X10*3/uL (160-400); Red Blood Count 4.44 X10*6/uL (4.60-5.80); Red Cell Distribution Width 13.1 % (11.0-16.0); White Blood Count 5.4 X10*3/uL (4.8-10.8)
[2024-12-08 07:28] LABS: Estimated Average Glucose 160 mg/dL; Hemoglobin A1C 194.5132 umol/L; Hemoglobin A1c % 7.2 % (<6.0); Total Hemoglobin (HGBA1C) 3519.6481 umol/L
[2024-12-08 07:43] LABS: Alanine Aminotransferase 35 U/L (0-40); Albumin Level 4.2 g/dL (3.5-5.0); Alkaline Phosphatase 102 U/L (39-117); Anion Gap 12 (12-20); Aspartate Amino Transferase 26 U/L (5-37); Bilirubin Total 0.4 mg/dL (0.0-1.0); Blood Urea Nitrogen 21 mg/dL (9-16); Calcium 9.2 mg/dL (8.4-10.2); Carbon Dioxide 26 mmol/L (22-29); Chloride 108 mmol/L (96-108); Cholesterol 129 mg/dL (<200); Estimated Glomerular Filt Rate > 60; Glucose Random 107 mg/dL (60-115); HDL Cholesterol 34 mg/dL (>40); Iron 67 mcg/dL (45-160); LDL Cholesterol Calculated 69 mg/dL (<100); Percent Iron Saturation 26 % (15-50); Potassium 3.8 mmol/L (3.3-5.1); Sodium 142 mmol/L (135-145); Total Iron Binding Capacity 257 mcg/dL (228-428); Total Protein 7.5 g/dL (6.5-8.0); Triglycerides 133 mg/dL (<150); Unsaturated Iron Binding 190 ug/dL
[2024-12-08 07:58] LABS: PSA,Total (Free>4and<10) 0.19 ng/mL (0.00-4.00)
[2024-12-08 07:59] LABS: Ferritin 84 ng/mL (20-250); Free T4 (Free Thyroxine) 1.14 ng/dL (0.71-1.85); Thyroid Stimulating Hormone 1.79 uIU/mL (0.32-4.0)
[2024-12-08 08:11] LABS: Folate 14.2 ng/mL (> or = 4.0); Vitamin B12 537 pg/mL (200-900)
[2024-12-08 10:08] LABS: Appearance Urine Clear; Color Urine Yellow; Glucose Urine UA Negative (Negative); Leukocyte Esterase Urine Negative (Negative); Nitrite Urine Negative (Negative); PH 5.5 (5.0-9.0); Specific Gravity - Urine 1.025 (1.005-1.025); Urine Blood Negative (Negative); Urine Ketones Negative (Negative); Urine Protein Negative (Neg-Trace)
[2024-12-08 10:52] LABS: Creatinine Urine 130.41 mg/dL
== END 2024-12-08 06:01 | disposition home or self-care (01) ==
LOC: HO.LAB 06:00
PROVIDERS: PCP Internal Medicine; Visit Provider Internal Medicine
DX: E11.65 Type 2 diabetes mellitus with hyperglycemia (principal); E78.00 Pure hypercholesterolemia, unspecified; R30.0 Dysuria; Z12.5 Encounter for screening for malignant neoplasm of prostate
CPT/HCPCS: 36415; 80053; 80061; 81003; 82570; 82607; 82728; 82746; 83036; 83540; 84153; 84439; 84443; 85025

== ENCOUNTER 2024-12-11 12:04 | Outpatient (AMB) | payer OTHER, SELFPAY ==
--- NOTE | 2024-12-11 12:14 | A.OFFPC_ITS ---
Vital Signs 12/11/24 12:20 Height 6 ft 1 in Weight 216 lb BMI 28.5 BP 130/62 Blood Pressure Location Lt brachial Position Sitting Pulse 78 Pulse Source Pulse Oximeter Pulse Oximetry (%) 98 Oxygen Delivery Method Room Air Intake Visit Reasons: annual exam Intake Note: Patient here for a physical exam [employer] Required: No Accompanied by: Self / Same As Patient Allergies No Known Allergies Allergy (Verified 12/11/24 12:23) Medication List - Last Reconciled 12/11/24 by Antoni Damon MD atorvastatin (Lipitor) 10 mg PO DAILY B-complex with vitamin C 1 tab PO DAILY blood sugar diagnostic (FreeStyle Lite Strips) test blood sugar ones a day cholecalciferol (vitamin D3) 25 mcg PO DAILY dulaglutide (Trulicity) 3 mg (0.5 mL) subcut QWEEK fluticasone propionate 50 mcg/actuation (Flonase Allergy Relief) 1 spray intranasal DAILY insulin glargine (Lantus Solostar U-100 Insulin) 40 units subcut QAM insulin lispro (Humalog KwikPen (U-100) Insulin) 5 units subcut TID lisinopril-hydrochlorothiazide 20-12.5 mg 1 tab PO BID multivitamin 1 tab PO DAILY omeprazole 40 mg PO BID 90 days Tobacco use date assessed: 12/11/24 Fall risk assessment: No Falls in past year Last assessed Fall Risk: 12/11/24 Dental Screening Dental Screen Date: 12/11/24 Did you have a dental visit in the last 12 months?: Yes Did you have a dental problem in the last 6 months where you did not have access to dental care?: No Was dental information given to patient?: Patient has dentist HPI annual exam HPI Details egd egd scheduled for next week. tinnitus seen [facility] Medical History (Updated 12/11/24 @ 12:31 by Antoni Damon MD) Radiation proctitis Hiatal hernia Lumbar degenerative disc disease Cataract Prostate cancer Obstructive sleep apnea Fatty liver Hypercholesterolemia Barretts esophagus Type 2 diabetes mellitus with hyperglycemia Surgical History History of colonoscopy History of endoscopy History of removal of cyst History of cataract surgery Family History Father Testicular cancer Diabetes Hypertension Stroke Mother Colon cancer Breast cancer Paternal Uncle Myocardial infarction Brother Kidney problem Brother No problems noted. Social History (Updated 12/11/24 @ 12:36 by Antoni Damon MD) Housing: House Alcohol intake: current Alcohol intake frequency: a few times a week Alcohol type: wine Comment: once to twice week = 1-2 drinks Patient Tobacco Use Status: Former Tobacco user Tobacco use type: Cigarette Cigarette Packs Per Day: 1 Years Smoked: quit 1999 e-Cigarette/Vaping Use: Never Used Second Hand Smoke Exposure: No service: No Current occupational status: retired Cognitive needs: No Hearing needs: No Vision needs: Yes (reading glasses) Questionnaire PHQ-9 Over the last 2 weeks, how often have you been bothered by any of the following problems? 1. Little interest or pleasure in doing things: not at all 2. Feeling down, depressed, or hopeless: not at all 3. Trouble falling or staying asleep, or sleeping too much: more than half the days 4. Feeling tired or having little energy: more than half the days 5. Poor appetite or overeating: not at all 6. Feeling bad about yourself - or that you are a failure or have let yourself or your family down: not at all 7. Trouble concentrating on things, such as reading the newspaper or watching television: not at all 8. Moving or speaking so slowly that other people could have noticed. Or the opposite - being so fidgety or restless that you have been moving around a lot more than usual: not at all 9. Thoughts that you would be better off or of hurting yourself in some way: not at all Total score: 4 Depression Screening Interpretation: Positive Depression Screening Done: Yes Source: Developed by Drs. Earl Woodson, Ailyn Barrno, Abner Blair and colleagues, with an educational walker from [employer]. Thrive Questionnaire Date Thrive assessed: 12/09/24 I am a: Patient What is your living situation today?: I have a steady place to live Within the past 12 months, did the food you bought not last and you didn't have the money to get more?: Never true Within the past 12 months, did you worry whether your food would run out before you got money to buy more?: Never true Do you have trouble paying for medicines?: No Do you have trouble getting transportation to medical appointments?: No Do you have trouble paying your heating and electricity bill?: No Do you have trouble taking care of your child, family member or friend?: No Do you have trouble with day-to-day activities such as bathing, preparing meals, shopping, managing finances, etc.?: No Are you currently unemployed and looking for a job?: No Are you interested in more education?: No Please select the resources that you would like help with: None Currently or been in a relationship where the following occur: No concerns reported THRIVE Score: 0 AUDIT C Alcohol Use Questionnaire (AUDIT-C) 1. How often do you have a drink containing alcohol?: 2-3 times a week 2. How many drinks containing alcohol do you have on a typical day when you are drinking?: 1 or 2 3. How often do you have six or more drinks on one occasion?: Less than monthly Total Score: 4 LOGAN-7 AMB Questionnaire LOGAN-7 Date LOGAN - 7 assessed: 12/11/24 Feeling nervous, anxious, or on edge: 0 = Not at all Not being able to stop or control worryin = Not at all Worrying too much about different things: 1 = Several days Trouble relaxin = Several days Being so restless that it is hard to sit still: 0 = Not at all Becoming easily annoyed or irritable: 0 = Not at all Feeling afraid as if something awful might happen: 0 = Not at all Total LOGAN-7 score (0-4 normal; 5-9 mild; 10-14 moderate; 15-21 severe): 2 Source: Developed by Drs. Earl Woodson, Ailyn Barron, Abner Blair and colleagues, with an educational walker from [employer]. Review of Systems Const Denies poor appetite and Denies weakness Eyes Denies no additional complaints ENT Reports Normal hearing present, Denies dizziness, Denies nasal congestion, Denies tinnitus and Denies sore throat Card Denies chest pain, Denies syncope, Denies rapid heart rate and Denies dyspnea Resp Denies cough and Denies dyspnea GI Denies change in stool character, Reports constipation, Denies diarrhea, Denies nausea and Denies vomiting Denies dysuria and Denies urinary frequency Neuro Reports Normal hearing present, Denies confusion, Denies dizziness, Denies syncope and Denies weakness Psych Denies confusion Physical exam (Primary Care) Vital Signs: Last Vital Signs Pulse 78 12/11/24 12:20 BP 130/62 12/11/24 12:20 Pulse Ox 98 12/11/24 12:20 Oxygen Delivery Method Room Air 12/11/24 12:20 BMI result Body Mass Index 28.5 Tobacco/Smoking Status: Tobacco use Status Tobacco use date assessed 12/11/24 12/11/24 12:25 Patient Tobacco Use Status Former Tobacco user 12/11/24 12:17 Tobacco use type Cigarette 12/11/24 12:17 e-Cigarette/Vaping Use Never Used 12/11/24 12:17 PHQ-9: PHQ-9 Score PHQ-9: Total score 4 12/11/24 12:32 Depression Screening Interpretation: Positive Thrive Assessment: Date of Thrive Assessment Date Thrive assessed 12/09/24 12/11/24 12:17 Currently or been in a relationship where the following occur: No concerns reported Const General: No confusion Orientation/consciousness: No confusion HENMT Head: Yes normocephalic Ears: external ears normal and TM's normal bilaterally Face and sinus: Yes normal facial exam Mouth: moist mucous membranes Throat: Yes tonsils normal Eyes Conjunctivae: conjunctivae normal Pupils: Equal, round and reactive pupils present and Pupil accommodation reflex normal Direct Ophthalmoscopy: normal light reflex Neck Neck: No lymphadenopathy Thyroid: Thyroid normal Chest Chest palpation & inspection: normal inspection of the chest Resp Effort & Inspection: normal respiratory effort and no audible wheezes Auscultation: clear to auscultation bilaterally, no crackles, no wheezes and susi g sounds not diminished Cardio Rate: regular rate Rhythm: regular rhythm Peripheral pulses: radial pulses present and dorsalis pedis present GI Palpation (GI): no masses Auscultation: normal bowel sounds and normoactive bowel sounds Rectal Exam - Male: Yes deferred Skin General skin exam: no rashes or lesions noted Rashes: no rashes Neuro General: No confusion Cranial nerves: Yes Equal, round and reactive pupils present and Yes Normal hearing present Cognition (Neuro): normal cognition Gait exam (Neuro): Normal gait present Motor exam (neuro): 5/5 motor strength present throughout Deep tendon reflexes (DTR's): Right brachioradialis reflex intensity grade: 2+, Left brachioradialis reflex intensity grade: 2+, Right patellar reflex intensity grade: 2+ and Left patellar reflex intensity grade: 2+ Extrem General: No edema Coding Level of Care Code Est Pt Prev Care >65y(49764) Diagnoses Annual physical exam Z00.00 Type 2 diabetes mellitus with hyperglycemia, without long-term current use of insulin E11.65 Diabetes mellitus terminal computer operator insulin use: without correction use Foreman's esophagus without dysplasia K22.70 Foreman's esophagus type: without dysplasia Hypercholesterolemia E78.00 Prostate cancer C61 Hypertension I10 Radiation proctitis K62.7 Obstructive sleep apnea G47.33 Assessment & Plan Assessment & Plan (1) Annual physical exam: Code(s): Z00.00 - Encounter for general adult medical examination without abnormal findings Category: Medical Plan: Patient is advised to eat healthy, keep well hydrated, keep active and have adequate sleep. (2) Type 2 diabetes mellitus with hyperglycemia: Comment: / Brett Code(s): E11.65 - Type 2 diabetes mellitus with hyperglycemia Category: Medical Qualifiers: Diabetes mellitus terminal computer operator insulin use: without terminal computer operator use Qualified Code(s): E11.65 - Type 2 diabetes mellitus with hyperglycemia Plan: Decrease the amount of carbohydrate intake, pasta, bread, rice and potatoes are all sugar and that is aside from all the sweet stuff, remember that fruits are good but they are Sweet also. Hemoglobin A1c goal of less than 7.0. Patient is on Trulicity right now with 3 mg once a week Lantus of 40 units once a day Humalog sliding scale. (3) Barretts esophagus: Comment: Status post radiofrequency ablation January 2010, EGD October Code(s): K22.70 - Foreman's esophagus without dysplasia Category: Medical Qualifiers: Foreman's esophagus type: without dysplasia Qualified Code(s): K22.70 - Foreman's esophagus without dysplasia Plan: Avoid the foods that causes that usually spicy foods, tomato products, juices, coffee, soda and foods that your sensitive to. After eating do not lie down, allow 3-4 hours before in lie down. And keep the head of bed above 30 degrees to avoid the acid from going up. (4) Hypercholesterolemia: Code(s): E78.00 - Pure hypercholesterolemia, unspecified Category: Medical Plan: Avoid fried foods, chicken skin, eggs, butter margarine, pastries and meat. Be it pork or beef they have a lot of cholesterol LDL goal of less than 100 and triglyceride of less than 150 on atorvastatin 10 (5) Prostate cancer: Comment: May 2018 Dr. Tilley radiotherapy November 2019. has a ff up Code(s): C61 - Malignant neoplasm of prostate Category: Medical Plan: Continue follow-up with Urology and annual PSA. (6) Hypertension: Code(s): I10 - Essential (primary) hypertension Category: Medical Plan: Continue with blood pressure medication. Decrease salt intake and exercise on lisinopril hydrochlorothiazide 20/12.5 twice a day (7) Radiation proctitis: Code(s): K62.7 - Radiation proctitis Category: Medical Plan: Patient has follow-up with Gastroenterology (8) Obstructive sleep apnea: Comment: cannot tolerate CPAP (08/2020) 01/26/2024 Code(s): G47.33 - Obstructive sleep apnea (adult) (pediatric) Category: Medical Plan History of Present Illness The patient is a 74-year-old male presenting for an annual physical examination. He has a complex medical history including type 2 diabetes mellitus currently being managed with a regimen of Trulicity, Lantus, and Humalog. His hemoglobin A1c is slightly above target at 7.2. Foreman's Esophagus is present, with continuous monitoring through periodic endoscopies. The condition is controlled, and he is asymptomatic with it being managed on omeprazole. For hypercholesterolemia, he is on atorvastatin, maintaining an LDL level at 69. Essential hypertension is additionally managed with a combination of lisinopril hydrochlorothiazide, maintaining stable blood pressure levels. He has a history of prostate cancer, with successful radiotherapy treatment in 2018 and subsequent regular PSAs showing low levels indicative of remission. Radiation proctitis and benign prostatic hyperplasia have contributed to urinary symptoms, which are monitored by his urologist. Chronic anemia has shown stable improvement, with blood work showing no major cause for concern. Obstructive sleep apnea is suboptimally managed due to intolerance of CPAP therapy, causing persistent fatigue. Health Maintenance - Influenza vaccine received - Shingles vaccine up-to-date - Pneumococcal vaccine received in 2021 - Tetanus vaccine administered in 2022 - Ongoing control of diabetes mellitus, including regular monitoring of hemoglobin A1c - Regular endoscopic surveillance for Foreman's Esophagus - Annual PSA screening due to history of prostate cancer Social History - Occasional wine consumption, reduced to 1-2 glasses a couple of times a week - No tobacco use reported - Reports regular walking as physical activity - Supplements: Vitamin D, B-complex, and C Review of Systems - General: Reports fatigue; denies sudden changes in weight, appetite changes, or fever. - ENT: Reports dry mouth related to CPAP use. - Cardiovascular: Denies chest pain or palpitations. - Respiratory: Denies shortness of breath not associated with sleep disturbances. - Gastrointestinal: Denies nausea, vomiting, or diarrhea. - Musculoskeletal: Denies joint pain and stiffness affecting activities. - Neurological: Reports mild forgetfulness; denies headaches or dizziness. - Genitourinary: Denies burning with urination or hematuria. Physical Exam General: Cooperative, overweight, healthy appearing, comfortable, no acute distress and well developed Orientation: Patient oriented x3 Limitations: No limitations Head: Normal to inspection Ears: Hearing grossly normal bilaterally, some ear wax present Nose: Normal external nose present Face and sinus: Normal facial exam, sinus headaches and sinus pain noted Eyes: Appearance normal, both eyes and all related structures Neck: Normal visual inspection and Yes full ROM Respiratory: Normal respiratory effort and able to speak in complete sentences. Clear to auscultation bilaterally Cardiovascular: Regular rate and rhythm. Normal S1 and S2 GI: Normal to inspection. Soft to palpation and nontender Skin: No rashes or lesions noted Neuro: Patient oriented x3, numbness in feet noted Extremities: Normal to inspection, more numbness in feet noted, arthritis pain in hips and knees noted Results - Labs: Hemoglobin 13.5, LDL cholesterol 69, Hemoglobin A1c 7.2, PSA 0.19 - Tests: Regular endoscopies for Foreman's Esophagus scheduled, prostate screenings consistent with remission status. Plan Continue the current treatment plan for diabetes, hypertension, and hypercholesterolemia, with a focus on achieving optimal control per guidelines. Continue monitoring and evaluating Foreman's Esophagus through gastroenterology consultations and maintain urology follow-ups for prostate health, ensuring regular PSA monitoring. Address anemia through periodic blood work monitoring. Discuss alternative options with the patient to improve sleep apnea management and adherence to CPAP usage, while considering other supportive strategies to manage this condition. A focus on hydration, regular physical activity, and other lifestyle adjustments is emphasized. Patient was informed and verbally consented to the use of an ambient scribe for clinic note documentation during this visit. Discussion Notes I reviewed the patient's primary medical conditions, including type 2 diabetes, Foreman?s Esophagus, hypercholesterolemia, obstructive sleep apnea, and others. We discussed management strategies for each, stressing the importance of lifestyle modifications and adherence to prescribed treatments. The importance of regular monitoring via lab tests and follow-up consultations with specialists was reiterated. We reviewed the patient's anemia and explored potential management strategies to improve compliance with sleep apnea therapy. Alternative approaches were briefly discussed to address intolerance issues with CPAP use. Patient was advised to maintain physical activity as a component of his management plan. We discussed the possibility of using topical anti- inflammatory options to manage arthritic symptoms and the need for regular h ydration. Emphasizing the continuity of care, I arranged for follow-ups and instructed the patient to seek immediate care if experiencing significant changes in symptoms or new medical concerns. Patient Instructions - Continue current medications as prescribed, including diabetes, hypertension management, and cholesterol. - Follow the prescribed regimen for sleep apnea management and discuss any concerns with the sleep specialist. - Stay hydrated and incorporate regular physical activity and dietary measures steadily. - Schedule follow-ups as recommended, ensuring regular monitoring of A1c, PSA, and other relevant parameters. - Use topical NSAID (Voltaren) gel for joint discomfort as needed. - Report any new or worsening symptoms promptly. - Maintain current vaccination schedule as recommended.
[2024-12-11 12:20] VITALS: BP 130/62; PULSE 78; O2SAT 98; BMI 28.5
--- OUTSIDE RECORDS SUMMARY | 2024-12-11 14:38 | XMS_ITS | Continuity of Care Document ---
Author Organization [facility] [address] [place] [address] Phone [phone] Care Team Providers Care Water Project Engineer Name Role Phone Antoni Damon Care Team Information Machine Shop Inspector [phone] Problems Active Problems Provider Date Type 2 [...] SIG Qnty Indications Order ing Provider Date Ecfmotjkl3tm/0.5ML Solution Auto-Inject Inject 3 MG Subcutaneously Every Week 2ml E11.9 Megan Ambriz M.D. 09/24/2024 Z79.4 [id number] Capsules 1 by mouth every day as needed 30caps Gee Rutherfordenstein, M.D. 11/21/2023 Lisinopril-Hydrochlor smjxanths56-97.5mg Tablets 1 bid Gee Rodriguez M.D. 07/20/2023 BD Pen NDL [id number] 31G X31G X 5 mm Use Before Meals And AT Bedtime 100units Gee Rodriguez M.D. 08/30/2022 Atorvastatin Woofges31kg Tablets 1 by mouth every day 90tabs Gee fountain M.D. 04/20/2022 Lantus Pzdtklwq375Ybvy/ML Solution Pen-Inject Inject 40 Unit Subcutaneously AT Bedtime 30units E11Chao9 Megan Ambriz M.D. Freestyle Lite TestStrips 1 strip to skin every day Dx: E11.9 100units E11.Ronit Ambriz M.D. Humalog Uhvaaaj450Rrfn/ML Solution Pen-Inject Inject 6-12 Units Subcutaneously Before Meals, Max Daily Dose Of 36 Units 15units Gee Rodriguez M.D. Oconyrsdxk55pe Capsules DR 1 tab by mouth twice a day 90blaine Rodriguez M.D. History Medications Freestyle Alem 3/Sensor/Glucose Monitoring Ljdttw2Jrialr Misc Change Sensor Every 14 Days 2units [...] Glucose Fingerstick 189 Laboratory test finding 07/10/2023 [facility] Hemoglobin A1c 7.3 % High (4.0-5.6) 8 Laboratory test finding 03/12/2023 Inhouse Glucose Fingerstick 155 Laboratory test finding 03/10/2023 [facility] Hemoglobin A1c 7.0 % High (4.0-5.6) 9 Laboratory test finding 11/29/2022 Inhouse Glucose Fingerstick 186 Laboratory test finding 11/28/2022 [facility] Hemoglobin A1c 7.0 % High (4.0-5.6) 10 Laboratory test finding 08/02/2022 Inhouse Glucose Fingerstick 158 Urinary Microalbumin 07/31/2022 [facility] Micro-Albumin <12.0 mg/L (<20) 11 Malb/Creat Ratio Unable to calcul <SEE NOTE> MG/GM (0-20) 12 Urine Creat For Micro Albumin 122.8 mg/dL Laboratory test finding 07/31/2022 [facility] Hemoglobin A1c 7.2 % High [...] with health care provider. DIAGNOSTIC USE: The [place] [employer] (ADA) and the World Health [...] with health care provider. DIAGNOSTIC USE: The [place] [employer] (ADA) and the World Health [...] with health care provider. DIAGNOSTIC USE: The [place] [employer] (ADA) and the World Health [...] with health care provider. DIAGNOSTIC USE: The [place] [employer] (ADA) and the World Health [...] with health care provider. DIAGNOSTIC USE: The [place] [employer] (ADA) and the World Health [...] 2 diabet es mellitus without complications Z79.4 [facility] (current) use of insulin I10 Essential (primary) hypertension G47.30 Sleep apnea, unspeci fied Assessments Date Code Description Provider 09/24/2024 E11.9 Type 2 diabetes mellitus wit hout complications BUBBA Delgado 09/24/2024 Z79.4 [facility] (current) use of i nsulin BUBBA Delgado 09/24/2024 I10 Essential hypertension BUBBA Melara 09/24/2024 G47.30 Sleep apnea BUBBA Delgado Plan of Treatment Future Appointment(s):* 01/06/2025 10:45 am - BUBBA Delgado at Main Office 03/11/2024 - Gee Rodriguez M.D.* E11.9 Type 2 diabetes mellitus without complications * Z79.4 [facility] (current) use of insulin * K62.7 Radiation proctitis * Z85.46 History of malignant neoplasm of prostate * G47.30 Sleep apnea Functional Status Description No Information Available Mental Status Description No Information Available Referrals Description No Information Available
--- OUTSIDE RECORDS SUMMARY | 2024-12-11 14:38 | XMS_ITS | Data Portability ---
Author Organization [facility], Allergy Address [address] [place] [phone] Care Team Providers Care Signal Engineer Name Role Phone HANDY DURHAM Primary Care Provider [phone] Assessment Encounter Date Assessment Date Assessment LastModified [...] Sensorineur al hearing loss of bilateral ears [id number] Active 2024 NAYLA NURIS, COLTON [address] [facility],[place] [address], [place], [phone], [facility] 09:50:42 Bilateral tinnitus [id number] Active 2024 CHANNING EVANGELISTA PA-C [address] [facility], [address] [facility], [place], [phone], [facility] 10:22:57 Problem Notes None recorded. Procedures Surgical History Date Name Laterality Status Provider Name and Address Organization Details Recorded Time 11/19/2024 Comp Audio with Tymps (92710 & 94964) completed NAYLA LAWLER, COLTON [address] [facility],[address], [address], [facility] 11/19/2024 09:50:33 Imaging Results Imaging Date [...] Updated DateTime 11/19/2024 185.42 cm 29.7 kg/m2 077504.28 g Francia Kathleen [place] - [facility] 11/19/2024 10:11:18 Social History None recorded. Functional Status None recorded. Mental Status None recorded. Family History Nothing Reported. Medical History Condition Response Cancer Y Arthritis Y Hypertension Y Past Encounters Encounter ID Performer Location Encounter Start Date Encounter Closed Date Diagnosis/Indication Diagnosis SNOMED-CT Code Diagnosis ICD10 Code Diagnosis Note [id number] CHANNING EVANGELISTA PA-C [facility] [address] [address] 11/19/2024 09:28:29 11/19/2024 10:27:41 Bilateral tinnitus [id number] 102 H93.13 Sensorineu ral hearing loss of bilateral ears 060728211 H90.3 [id number] COLTON MAY [facility] [address] [address] 11/19/2024 09:46:59 11/20/2024 07:22:44 Sensorineural hearing loss of bilateral ears [id number] H90.3 Audiologic al evaluation results: {{Normal sloping* [...] Name 11/19/2024 2 [place] [id number] Trevor Catarina Frias [id number] 31 Trevor Frias 11/19/2024 1 [place] Trevor Catarina Berne [id number] Trevor Altagracia 11/19/2024 2 [place] [id number] Trevor Frias [id number] 31 Trevor Mcculloughbert 11/19/2024 1 [place] Trevor Frias [id number] Trevor Frias Notes Date Note Type Note Provider Name and Address Organization Details Recorded Time 11/19/2024 text/html Audiological Evaluation HPIReported bypatient.Hearing loss perceived:gradual onset Tinnitus reported:left ear NAYLA LAWLER, [facility] [address] [facility],[address], [phone], [facility] - [facility] 11/19/2024 09:56:17 11/19/2024 text/html 74 year [...] and no otologic surgery. CHANNING EVANGELISTA PA-C [address] [place] [address], [phone], [facility] - [facility] 11/19/2024 10:27:32
== END 2024-12-11 12:57 | disposition home or self-care (01) ==
PROVIDERS: PCP Internal Medicine; Visit Provider Internal Medicine
DX: Z00.00 Encounter for general adult medical examination without abnormal findings (principal); E11.65 Type 2 diabetes mellitus with hyperglycemia; C61 Malignant neoplasm of prostate; K22.70 Barrett's esophagus without dysplasia; E78.00 Pure hypercholesterolemia, unspecified; I10 Essential (primary) hypertension; K62.7 Radiation proctitis; G47.33 Obstructive sleep apnea (adult) (pediatric)

== ENCOUNTER 2025-03-16 12:53 | Outpatient (AMB) | payer MEDICARE, SELFPAY ==
[2025-03-16 12:58] VITALS: BP 120/72; PULSE 84; O2SAT 98; BMI 27.8
--- NOTE | 2025-03-16 12:58 | A.OFFPC_ITS ---
Vital Signs 03/16/25 12:58 Height 6 ft 1 in Weight 211 lb BMI 27.8 BP 120/72 Blood Pressure Location Lt brachial Position Sitting Pulse 84 Pulse Source Pulse Oximeter Pulse Oximetry (%) 98 Oxygen Delivery Method Room Air Intake Visit Reasons: /DM Rn Tele Required: No Accompanied by: Self / Same As Patient Allergies No Known Allergies Allergy (Verified 03/16/25 12:59) Medication List - Last Reconciled 03/16/25 by Antoni Damon MD atorvastatin (Lipitor) 10 mg PO DAILY B-complex with vitamin C 1 tab PO DAILY blood sugar diagnostic (FreeStyle Lite Strips) test blood sugar ones a day cholecalciferol (vitamin D3) 25 mcg PO DAILY dulaglutide (Trulicity) 3 mg (0.5 mL) subcut QWEEK fluticasone propionate 50 mcg/actuation (Flonase Allergy Relief) 1 spray intranasal DAILY insulin glargine (Lantus Solostar U-100 Insulin) 40 units subcut QAM insulin lispro (Humalog KwikPen (U-100) Insulin) 5 units subcut TID lisinopril-hydrochlorothiazide 20-12.5 mg 1 tab PO BID multivitamin 1 tab PO DAILY omeprazole 40 mg PO BID 90 days Tobacco use date assessed: 03/16/25 Fall risk assessment: No Falls in past year Last assessed Fall Risk: 03/16/25 Dental Screening Dental Screen Date: 03/16/25 Did you have a dental visit in the last 12 months?: Yes Did you have a dental problem in the last 6 months where you did not have access to dental care?: No Was dental information given to patient?: Patient has dentist REPLACED BY [facility] Medical History (Updated 03/16/25 @ 13:58 by Antoni Damon MD) Radiation proctitis Hiatal hernia Lumbar degenerative disc disease Cataract Prostate cancer Obstructive sleep apnea Fatty liver Hypercholesterolemia Barretts esophagus Type 2 diabetes mellitus with hyperglycemia Surgical History History of colonoscopy History of endoscopy History of removal of cyst History of cataract surgery Family History Father Testicular cancer Diabetes Hypertension Stroke Mother Colon cancer Breast cancer Paternal Uncle Myocardial infarction Brother Kidney problem Brother No problems noted. Social History Housing: House Alcohol intake: current Alcohol intake frequency: a few times a week Alcohol type: wine Comment: once to twice week = 1-2 drinks Patient Tobacco Use Status: Former Tobacco user Tobacco use type: Cigarette Cigarette Packs Per Day: 1 Years Smoked: quit 1999 e-Cigarette/Vaping Use: Never Used Second Hand Smoke Exposure: No service: No Current occupational status: retired Cognitive needs: No Hearing needs: No Vision needs: Yes (reading glasses) Questionnaire PHQ-9 Over the last 2 weeks, how often have you been bothered by any of the following problems? 1. Little interest or pleasure in doing things: not at all 2. Feeling down, depressed, or hopeless: not at all 3. Trouble falling or staying asleep, or sleeping too much: more than half the days 4. Feeling tired or having little energy: more than half the days 5. Poor appetite or overeating: not at all 6. Feeling bad about yourself - or that you are a failure or have let yourself or your family down: not at all 7. Trouble concentrating on things, such as reading the newspaper or watching television: not at all 8. Moving or speaking so slowly that other people could have noticed. Or the opposite - being so fidgety or restless that you have been moving around a lot more than usual: not at all 9. Thoughts that you would be better off or of hurting yourself in some way: not at all Total score: 4 Depression Screening Interpretation: Positive Depression Screening Done: Yes Source: Developed by Drs. Earl Woodson, Ailyn Barron, Abner Blair and colleagues, with an educational walker from [employer]. Thrive Questionnaire Date Thrive assessed: 03/16/25 I am a: Patient What is your living situation today?: I have a steady place to live Within the past 12 months, did the food you bought not last and you didn't have the money to get more?: Never true Within the past 12 months, did you worry whether your food would run out before you got money to buy more?: Never true Do you have trouble paying for medicines?: No Do you have trouble getting transportation to medical appointments?: No Do you have trouble paying your heating and electricity bill?: No Do you have trouble taking care of your child, family member or friend?: No Do you have trouble with day-to-day activities such as bathing, preparing meals, shopping, managing finances, etc.?: No Are you currently unemployed and looking for a job?: No Are you interested in more education?: No Please select the resources that you would like help with: None Currently or been in a relationship where the following occur: No concerns reported THRIVE Score: 0 AUDIT C Alcohol Use Questionnaire (AUDIT-C) 1. How often do you have a drink containing alcohol?: 2-3 times a week 2. How many drinks containing alcohol do you have on a typical day when you are drinking?: 1 or 2 3. How often do you have six or more drinks on one occasion?: Less than monthly Total Score: 4 LOGAN-7 AMB Questionnaire LOGAN-7 Date LOGAN - 7 assessed: 03/16/25 Feeling nervous, anxious, or on edge: 0 = Not at all Not being able to stop or control worryin = Not at all Worrying too much about different things: 1 = Several days Trouble relaxin = Several days Being so restless that it is hard to sit still: 0 = Not at all Becoming easily annoyed or irritable: 0 = Not at all Feeling afraid as if something awful might happen: 0 = Not at all Total LOGAN-7 score (0-4 normal; 5-9 mild; 10-14 moderate; 15-21 severe): 2 Source: Developed by Drs. Earl Woodson, Ailyn Barron, Abner Blair and colleagues, with an educational walker from [employer]. Physical exam (Primary Care) Vital Signs: Last Vital Signs Pulse 84 03/16/25 12:58 BP 120/72 03/16/25 12:58 Pulse Ox 98 03/16/25 12:58 Oxygen Delivery Method Room Air 03/16/25 12:58 BMI result Body Mass Index 27.8 Tobacco/Smoking Status: Tobacco use Status Tobacco use date assessed 03/16/25 03/16/25 13:00 Patient Tobacco Use Status Former Tobacco user 03/16/25 13:00 Tobacco use type Cigarette 03/16/25 13:00 e-Cigarette/Vaping Use Never Used 03/16/25 13:00 PHQ-9: PHQ-9 Score PHQ-9: Total score 4 03/16/25 13:54 Depression Screening Interpretation: Positive Thrive Assessment: Date of Thrive Assessment Date Thrive assessed 03/16/25 03/16/25 13:00 Currently or been in a relationship where the following occur: No concerns reported Const General: alert; No acute distress Eyes Conjunctivae: conjunctivae normal Resp Auscultation: clear to auscultation bilaterally Cardio Rate: regular rate Rhythm: regular rhythm GI Inspection: Yes normal to inspection Extrem General: Yes normal to inspection and No edema Coding Level of Care Code Est Pt Level 4 (69979) Complex EM visit Add On G2211 Diagnoses Type 2 diabetes mellitus with hyperglycemia, without long-term current use of insulin E11.65 Diabetes mellitus penitentiary insulin use: without penitentiary use Foreman's esophagus without dysplasia K22.70 Foreman's esophagus type: without dysplasia Hypercholesterolemia E78.00 Prostate cancer C61 Anemia D64.9 Hypertension I10 Colon cancer screening Z12.11 Assessment & Plan Assessment & Plan (1) Type 2 diabetes mellitus with hyperglycemia: Comment: / Brett Code(s): E11.65 - Type 2 diabetes mellitus with hyperglycemia Category: Medical Qualifiers: 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 Hemoglobin A1c goal of less than 7.0. Patient follows up with endocrinology on Trulicity 3 mg once a week Lantus at 40 units once a day Humalog sliding scale (2) Barretts esophagus: Comment: Status post radiofrequency ablation January 2010, EGD October Code(s): K22.70 - Foreman's esophagus without dysplasia Category: Medical Qualifiers: Foreman's esophagus type: without dysplasia Qualified Code(s): K22.70 - Foreman's esophagus without dysplasia Plan: Avoid the foods that causes that usually spicy foods, tomato products, juices, coffee, soda and foods that your sensitive to. After eating do not lie down, allow 3-4 hours before in lie down. And keep the head of bed above 30 degrees to avoid the acid from going up. Patient just had an EGD done under Dr. Mcfarlane (3) Hypercholesterolemia: Code(s): E78.00 - Pure hypercholesterolemia, unspecified Category: Medical Plan: Avoid fried foods, chicken skin, eggs, butter margarine, pastries and meat. Be it pork or beef they have a lot of cholesterol patient on atorvastatin 10 mg once a day December 2024 last blood work (4) Prostate cancer: Comment: May 2018 Dr. Tilley radiotherapy November 2019. has a ff up Code(s): C61 - Malignant neoplasm of prostate Category: Medical Plan: Continue to follow-up with urology surveillance (5) Anemia: Code(s): D64.9 - Anemia, unspecified Category: Medical Plan: Chronic and stable (6) Hypertension: Code(s): I10 - Essential (primary) hypertension Category: Medical Plan: Continue with blood pressure medication. Decrease salt intake and exercise on lisinopril hydrochlorothiazide (7) Colon cancer screening: Code(s): Z12.11 - Encounter for screening for malignant neoplasm of colon Category: Medical Plan History of Present Illness The patient is a 74 year old male presenting with a follow-up visit for chronic conditions and review of recent test results. He is managing his diabetes mellitus with Trulicity, Lantus, and Humalog, aiming for better control as his last HbA1c was 7.2. Recent laboratory work identified mild anemia. He continues to manage Foreman's esophagus, having undergone recent EGD, and hypercholesterolemia with atorvastatin, achieving a current LDL cholesterol level of 69. His medical history includes prostate cancer currently under surveillance, obstructive sleep apnea not tolerated with CPAP, and hypertension managed with lisinopril and hydrochlorothiazide. He also reported a 5-pound weight loss. Health Maintenance - Diabetes management with a goal HbA1c of less than 7.0 - Regular surveillance of prostate cancer with urology - Screening for retinopathy, no recent findings as of December 2024 - Cholesterol management with atorvastatin - Recent EGD screening for Foreman's esophagus - Regular blood pressure monitoring for hypertension Social History Review of Systems - Endocrine: Reports weight loss of 5 pounds. - Neurologic/Sleep: Reports intolerance to CPAP for obstructive sleep apnea. - Ophthalmologic: Denies retinopathy in December 2024. - Hematologic: Reports mild anemia. Physical Exam Results - Labs: Hemoglobin 13.5, Hematocrit 38.9, LDL cholesterol 69, HbA1c 7.2 - Tests and Diagnostics: EGD performed recently, no retinopathy found at [facility] in December 2024 Plan 1. 0. Hypercholesterolemia management with atorvastatin remains in place, aiming to sustain LDL levels. Recent EGD findings for Foreman's esophagus and urology surveillance for prostate cancer are important components of ongoing care. Hypertension management with the current medication will be maintained. Given the intolerance to CPAP for obstructive sleep apnea, alternative options should be explored. Mild anemia will be monitored for any changes. While noting weight loss, regular monitoring and further evaluation of the patient's health are essential.: Patient was informed and verbally consented to the use of an ambient scribe for clinic note documentation during this visit. Discussion Notes During the visit, I discussed the importance of controlling diabetes and maintaining an HbA1c of less than 7.0 with the current medications. I highlighted the role of atorvastatin in keeping cholesterol levels within target ranges. We reviewed the findings from the recent EGD and the importance of continuous surveillance for Foreman's esophagus. I emphasized the importance of regular urology check-ups for prostate cancer surveillance. We discussed intolerance to CPAP therapy for obstructive sleep apnea and explored the possibility of alternative management strategies. I explained the findings of mild anemia and the need for continued observation of blood work. I also mentioned the significance of weight monitoring and the need to investigate the slight weight loss reported. Patient Instructions - Continue current diabetes medications as prescribed. - Follow up with the specialist for regular diabetes monitoring. - Continue taking atorvastatin daily for cholesterol control. - Maintain regular appointments for prostate cancer surveillance. - Monitor blood pressure and continue current medications. - Consider discussing alternative treatments for sleep apnea. - Report any new symptoms or concerns promptly. - Ensure regular medical follow-up appointments. Orders: Orders AMB Hemoglobin A1c Today Z13.9 - Encounter for screening, unspecified Referrals Gastroenterology Referral Z12.11 - Encounter for screening for malignant neoplasm of colon
--- OUTSIDE RECORDS SUMMARY | 2025-03-16 14:31 | XMS_ITS | Continuity of Care Document ---
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 09/24/2024 Z79.4 Cgtreelt937vq Capsules 1 by mouth every day as needed 30blaine Rodriguez M.D. 11/21/2023 Lisinopril-Hydrochlor lgpebmyig02-45.5mg Tablets 1 bid Gee Rodriguez M.D. 07/20/2023 BD Pen NDL 60NL9BM 31G X31G X 5 mm Three times daily, use new pen needle with insulin pens. 300units Megan Ambriz M.D. 08/30/2022 Atorvastatin Msyaqlj73hw Tablets 1 by mouth every day 90tabs Gee fountain M.D. 04/20/2022 Lantus Mipqdahy885Bpli/ML Solution Pen-Inject Inject 40 Unit Subcutaneously AT Bedtime 30units E11Alyx Ambriz M.D. Freestyle Lite TestStrips 1 strip to skin every day Dx: E11.9 100units E11Alyx Ambriz M.D. Humalog Sfdxdtn613Bgbc/ML Solution Pen-Inject Inject 6-12 Units Subcutaneously Before Meals, Max Daily Dose Of 36 Units 15units Megan Ambriz M.D. Jksaouhozg59to Capsules DR 1 tab by mouth twice a day 90blaine Rodriguez M.D. History Medications Freestyle Alem 3/Sensor/Glucose Monitoring Kwhltq8Jqpfdh Misc Change Sensor Every 14 Days 2units E11Alyx Ambriz M.D. 07/24/2024 - 07/24/2024 Z79.4 Freestyle Alem 3 Plus/Sesor/Glucose Monitoring SystemMisc Apply new sensor every 15 days 6units E11Alyx Ambriz M.D. 06/05/2024 - 07/24/2024 Z79.4 Vital Signs Date Vital Result Comment 01/06/2025 10:52am BP Systolic 140 mmHg BP Diastolic 70 mmHg Heart Rate 86 /min Height 73 inches 6'1 Weight 219.25 lb BMI (Body Mass Index) 28.9 kg/m2 Results Test Acquired Date Facility Test Result H/L Range Note Glucose Fingerstick 01/06/2025 [facility] Glucose Fingerstick 161 Hemoglobin A1c 01/01/2025 [facility] Hemoglobin A1c 7.5 % High 4.8-5.6 1, 2 Albumin/Creatini ne Ratio, Random Urine 09/24/2024 [facility] Creatinine, Urine 110.8 mg/dL Not Estab. Albumin, Urine 6.1 ug/mL Not Estab. Alb/Creat Ratio 6 mg/gcreat 0-29 3 Glucose Fingerstick 09/24/2024 [facility] Glucose Fingerstick 227 Hemoglobin A1c 09/18/2024 [facility] Hemoglobin A1c 7.9 % High 4.8-5.6 4 Glucose Fingerstick 06/16/2024 [facility] Glucose Fingerstick 159 Hemoglobin A1c 06/10/2024 [facility] Hemoglobin A1c 7.0 % High 4.8-5.6 5, 6 Glucose Fingerstick 03/11/2024 [facility] Glucose Fingerstick 181 Hemoglobin A1c 03/07/2024 [facility] Hemoglobin A1c 7.3 % High 4.8-5.6 7, 8 Glucose Fingerstick 11/21/2023 [facility] Glucose Fingerstick 168 Hemoglobin A1c 11/15/2023 [facility] Hemoglobin A1c 7.2 % High (4.0-5.6) 9 Glucose Fingerstick 07/20/2023 [facility]house Glucose Fingerstick 189 Hemoglobin A1c 07/10/2023 [facility] Hemoglobin A1c 7.3 % High (4.0-5.6) 10 Glucose Fingerstick 03/12/2023 [facility]house Glucose Fingerstick 155 Hemoglobin A1c 03/10/2023 [facility] Hemoglobin A1c 7.0 % High (4.0-5.6) 11 Glucose Fingerstick 11/29/2022 [facility]house Glucose Fingerstick 186 Hemoglobin A1c 11/28/2022 [facility] Hemoglobin A1c 7.0 % High (4.0-5.6) 12 Glucose Fingerstick 08/02/2022 [facility]house Glucose Fingerstick 158 Urinary Microalbumin 07/31/2022 [facility] Micro-Albumin <12.0 mg/L (<20) 13 Malb/Creat Ratio Unable to calcul <SEE NOTE> MG/GM (0-20) 14 Urine Creat For Micro Albumin 122.8 mg/dL Hemoglobin A1c 07/31/2022 [facility] Hemoglobin A1c 7.2 % High (4.0-5.6) 15 Glucose Fingerstick 04/20/2022 [facility]house Glucose Fingerstick 192 Hemoglobin A1c 04/20/2022 [facility] Hemoglobin A1c 7.6% 1 STANDING ORDER EVERY 3 M ONTHS 2 Prediabetes: 5.7 - 6 .4 Diabetes: >6.4 Glycemic control for adults with diabetes: <7.0 3 Normal: 0 - 29 Moderately increased: 30 - 300 Severely increased: >300 4 Prediabetes: 5.7 - 6 .4 Diabetes: >6.4 Glycemic control for adults with diabetes: <7.0 5 A courtesy copy of t his report has been sent to the patient STANDING ORDER EVERY 3 M ONTHS 6 Prediabetes: 5.7 - 6 .4 Diabetes: >6.4 Glycemic control for adults with diabetes: <7.0 7 STANDING ORDER EVERY 3 M ONTHS 8 Prediabetes: 5.7 - 6 .4 Diabetes: >6.4 Glycemic control for adults with diabetes: <7.0 9 MONITORING: In known diabetic patients, hemoglobin A1c targets should be discussed with health care provider. DIAGNOSTIC USE: The [place] Diabetes Association (ADA) and the World Health [...] with health care provider. DIAGNOSTIC USE: The [place] Diabetes Association (ADA) and the World Health [...] and Education Volume 43, Supplement 1 11 MONITORING: In known diabetic patients, hemoglobin A1c targets should be discussed with health care provider. DIAGNOSTIC USE: The [place] Diabetes Association (ADA) and the World Health [...] Research and Education Volume 43, Supplement 1 12 MONITORING: In known diabetic patients, hemoglobin A1c targets should be discussed with health care provider. DIAGNOSTIC USE: The [place] Diabetes Association (ADA) and the World Health [...] Research and Education Volume 43, Supplement 1 13 The urine microalbum in test is designed to monitor renal function. When screening for Bence Green proteinuria, urine electrophoresis is recommended. 14 Unable to calculate 15 MONITORING: In known diabetic patients, hemoglobin A1c targets should be discussed with health care provider. DIAGNOSTIC USE: The [place] Diabetes Association (ADA) and the World Health [...] Date Location Provider Dx Diagnosis Office Visit 01/06/2025 10:45a Main Office BUBBA Delgado E11.9 Type 2 diabet es mellitus without complications Z79.4 group home (current) use of insulin I10 Essential (primary) hypertension G47.30 Sleep apnea, unspeci fied Assessments Date Code Description Provider 01/06/2025 E11.9 Type 2 diabetes mellitus wit hout complications BUBBA Delgado 01/06/2025 Z79.4 medical terminologist (current) use of i nsulin BUBBA Delgado 01/06/2025 I10 Essential hypertension BUBBA Melara 01/06/2025 G47.30 Sleep apnea BUBBA Delgado Plan of Treatment Future Appointment(s):* 04/07/2025 10:30 am - BUBBA Delgado at Main Office 01/06/2025 - BUBBA Delgado* E11.9 Type 2 diabetes mellitus without complications * Z79.4 medical terminologist (current) use of insulin * I10 Essential hypertension * G47.30 Sleep apnea Functional Status Description No Information Available Mental Status Description No Information Available Referrals Description No Information Available
== END 2025-03-16 14:16 | disposition home or self-care (01) ==
LOC: HO.HMCH 12:54
PROVIDERS: PCP Internal Medicine; Visit Provider Internal Medicine
DX: E11.65 Type 2 diabetes mellitus with hyperglycemia (principal); K22.70 Barrett's esophagus without dysplasia; E78.00 Pure hypercholesterolemia, unspecified; C61 Malignant neoplasm of prostate; D64.9 Anemia, unspecified; I10 Essential (primary) hypertension; Z12.11 Encounter for screening for malignant neoplasm of colon

== ENCOUNTER → 2025-03-16 12:53 | Outpatient (BNVA) | payer MEDICARE, SELFPAY | PROVIDERS: PCP Internal Medicine; Visit Provider Internal Medicine | DX: E11.65 Type 2 diabetes mellitus with hyperglycemia (principal); K22.70 Barrett's esophagus without dysplasia; E78.00 Pure hypercholesterolemia, unspecified; D64.9 Anemia, unspecified; I10 Essential (primary) hypertension; C61 Malignant neoplasm of prostate | CPT/HCPCS: 99212 ==

== ENCOUNTER 2025-07-09 09:02 | Outpatient (AMB) | payer MEDICARE, SELFPAY ==
[2025-07-09 09:19] VITALS: BP 136/60; PULSE 74; TEMP 36.1; O2SAT 98; BMI 27.6
--- NOTE | 2025-07-09 09:19 | A.OFFPC_ITS ---
Vital Signs 07/09/25 09:19 Height 6 ft 1 in Weight 209 lb 4 oz BMI 27.6 BP 136/60 Blood Pressure Location Lt brachial Position Sitting Pulse 74 Pulse Source Pulse Oximeter Temp 97.0 F Temp Source Temporal Artery Scan Pulse Oximetry (%) 98 Oxygen Delivery Method Room Air Intake Visit Reasons: DM Allergies No Known Allergies Allergy (Verified 07/09/25 09:23) Tobacco use date assessed: 07/09/25 Fall risk assessment: No Falls in past year Last assessed Fall Risk: 07/09/25 Dental Screening Dental Screen Date: 07/09/25 Did you have a dental visit in the last 12 months?: Yes Did you have a dental problem in the last 6 months where you did not have access to dental care?: No Was dental information given to patient?: Patient has dentist HPI DM HPI Details worried about weight loss- not able to tolerate CPAP, tired PFSH Medical History Radiation proctitis Hiatal hernia Lumbar degenerative disc disease Cataract Prostate cancer Obstructive sleep apnea Fatty liver Hypercholesterolemia Barretts esophagus Type 2 diabetes mellitus with hyperglycemia Surgical History History of colonoscopy History of endoscopy History of removal of cyst History of cataract surgery Family History Father Testicular cancer Diabetes Hypertension Stroke Mother Colon cancer Breast cancer Paternal Uncle Myocardial infarction Brother Kidney problem Brother No problems noted. Social History Housing: House Alcohol intake: current Alcohol intake frequency: a few times a week Alcohol type: wine Comment: once to twice week = 1-2 drinks Patient Tobacco Use Status: Former Tobacco user Tobacco use type: Cigarette Cigarette Packs Per Day: 1 Years Smoked: quit 1999 e-Cigarette/Vaping Use: Never Used Second Hand Smoke Exposure: No service: No Current occupational status: retired Cognitive needs: No Hearing needs: No Vision needs: Yes (reading glasses) Questionnaire PHQ-9 Over the last 2 weeks, how often have you been bothered by any of the following problems? 1. Little interest or pleasure in doing things: not at all 2. Feeling down, depressed, or hopeless: not at all 3. Trouble falling or staying asleep, or sleeping too much: more than half the days 4. Feeling tired or having little energy: more than half the days 5. Poor appetite or overeating: not at all 6. Feeling bad about yourself - or that you are a failure or have let yourself or your family down: not at all 7. Trouble concentrating on things, such as reading the newspaper or watching television: not at all 8. Moving or speaking so slowly that other people could have noticed. Or the opposite - being so fidgety or restless that you have been moving around a lot more than usual: not at all 9. Thoughts that you would be better off or of hurting yourself in some way: not at all Total score: 4 Depression Screening Interpretation: Positive Depression Screening Done: Yes Source: Developed by Drs. Earl Woodson, Ailyn Barron, Abner Blair and colleagues, with an educational walker from [employer]. Thrive Questionnaire Date Thrive assessed: 12/09/24 I am a: Patient What is your living situation today?: I have a steady place to live Within the past 12 months, did the food you bought not last and you didn't have the money to get more?: Never true Within the past 12 months, did you worry whether your food would run out before you got money to buy more?: Never true Do you have trouble paying for medicines?: No Do you have trouble getting transportation to medical appointments?: No Do you have trouble paying your heating and electricity bill?: No Do you have trouble taking care of your child, family member or friend?: No Do you have trouble with day-to-day activities such as bathing, preparing meals, shopping, managing finances, etc.?: No Are you currently unemployed and looking for a job?: No Are you interested in more education?: No Please select the resources that you would like help with: None Currently or been in a relationship where the following occur: No concerns reported THRIVE Score: 0 AUDIT C Alcohol Use Questionnaire (AUDIT-C) 1. How often do you have a drink containing alcohol?: 2-3 times a week 2. How many drinks containing alcohol do you have on a typical day when you are drinking?: 1 or 2 3. How often do you have six or more drinks on one occasion?: Never Total Score: 3 LOGAN-7 AMB Questionnaire LOGAN-7 Date LOGAN - 7 assessed: 03/16/25 Feeling nervous, anxious, or on edge: 0 = Not at all Not being able to stop or control worryin = Not at all Worrying too much about different things: 1 = Several days Trouble relaxin = Several days Being so restless that it is hard to sit still: 0 = Not at all Becoming easily annoyed or irritable: 0 = Not at all Feeling afraid as if something awful might happen: 0 = Not at all Total LOGAN-7 score (0-4 normal; 5-9 mild; 10-14 moderate; 15-21 severe): 2 Source: Developed by Drs. Earl Woodson, Ailyn Barron, Abner Blair and colleagues, with an educational walker from [employer]. Physical exam (Primary Care) Vital Signs: Last Vital Signs Temp 97.0 F 07/09/25 09:19 Pulse 74 07/09/25 09:19 BP 136/60 07/09/25 09:19 Pulse Ox 98 07/09/25 09:19 Oxygen Delivery Method Room Air 07/09/25 09:19 BMI result Body Mass Index 27.6 Tobacco/Smoking Status: Tobacco use Status Tobacco use date assessed 07/09/25 07/09/25 09:25 Patient Tobacco Use Status Former Tobacco user 07/09/25 09:25 Tobacco use type Cigarette 07/09/25 09:25 e-Cigarette/Vaping Use Never Used 07/09/25 09:25 PHQ-9: PHQ-9 Score PHQ-9: Total score 4 07/09/25 14:13 Depression Screening Interpretation: Positive Thrive Assessment: Date of Thrive Assessment Date Thrive assessed 12/09/24 07/09/25 09:25 Currently or been in a relationship where the following occur: No concerns reported Const General: alert; No acute distress Eyes Conjunctivae: conjunctivae normal Resp Auscultation: clear to auscultation bilaterally Cardio Rate: regular rate Rhythm: regular rhythm GI Inspection: Yes normal to inspection Extrem General: Yes normal to inspection and No edema Results AMB Hemoglobin A1c AMB Hemoglobin A1c 6.4 % Last Edit by SARAN Benson on 07/09/25 14 :14 Coding Level of Care Code Est Pt Level 4 (77017) Complex EM visit Add On G2211 Diagnoses Type 2 diabetes mellitus with hyperglycemia, without long-term current use of insulin E11.65 Diabetes mellitus care home insulin use: without computer terminal operator use Hypertension I10 Hypercholesterolemia E78.00 Foreman's esophagus without dysplasia K22.70 Foreman's esophagus type: without dysplasia Prostate cancer C61 Assessment & Plan Assessment & Plan (1) Type 2 diabetes mellitus with hyperglycemia: Comment: / Brett Code(s): E11.65 - Type 2 diabetes mellitus with hyperglycemia Category: Medical Qualifiers: Diabetes mellitus computer terminal operator insulin use: without care home use Qualified Code(s): E11.65 - Type 2 diabetes mellitus with hyperglycemia Plan: Decrease the amount of carbohydrate intake, pasta, bread, rice and potatoes are all sugar and that is aside from all the sweet stuff, remember that fruits are good but they are Sweet also. Hemoglobin A1c goal of less than 7.0. Patient is being followed up by Endocrinology on Trulicity 3 mg once a week as well as Lantus. Because of hypoglycemia was advised to decrease to 34 units (2) Hypertension: Code(s): I10 - Essential (primary) hypertension Category: Medical Plan: Continue with blood pressure medication. Decrease salt intake and exercise takes lisinopril hydrochlorothiazide 20/12.5 mg twice a day (3) Hypercholesterolemia: Code(s): E78.00 - Pure hypercholesterolemia, unspecified Category: Medical Plan: Avoid fried foods, chicken skin, eggs, butter margarine, pastries and meat. Be it pork or beef they have a lot of cholesterol December 2024 last blood work on atorvastatin 10 mg once a day (4) Barretts esophagus: Comment: Status post radiofrequency ablation January 2010, EGD October Code(s): K22.70 - Foreman's esophagus without dysplasia Category: Medical Qualifiers: Foreman's esophagus type: without dysplasia Qualified Code(s): K22.70 - Foreman's esophagus without dysplasia Plan: Avoid the foods that causes that usually spicy foods, tomato products, juices, coffee, soda and foods that your sensitive to. After eating do not lie down, allow 3-4 hours before in lie down. And keep the head of bed above 30 degrees to avoid the acid from going up. (5) Prostate cancer: Comment: May 2018 Dr. Tilley radiotherapy November 2019. has a ff up Code(s): C61 - Malignant neoplasm of prostate Category: Medical Plan: Continue with follow-up with urology. Plan History of Present Illness The patient is a 75-year-old male presenting for a follow-up visit. The patient has a history of diabetes mellitus, currently managed with insulin and Trulicity, with the last hemoglobin A1c recorded at 7.1%. He has experienced episodes of hypoglycemia, leading to a reduction in insulin dosage to 34 units. The patient reports weight loss, which may be associated with Trulicity use, and he has been advised to monitor his blood glucose levels closely. The patient has Foreman's esophagus and undergoes regular endoscopic surveillance. He reports ongoing rectal bleeding and diarrhea, which have persisted since prostate cancer treatment with radiotherapy in 2018, suggesting radiation proctitis. The patient has a history of hypercholesterolemia, managed with atorvastatin, with recent LDL cholesterol levels at 69 mg/dL. The patient has a history of obstructive sleep apnea but is unable to tolerate CPAP therapy. He reports excessive daytime sleepiness and fatigue, impacting his daily activities. The patient was diagnosed with prostate cancer in 2018 and underwent radiotherapy. His PSA levels are currently low, but he continues to follow up with urology for surveillance. The patient has hypertension, managed with lisinopril and hydrochlorothiazide. The patient follows up with dermatology for seborrheic keratosis and dermato heliosis. He had a basal cell carcinoma in the occipital area of the right earlobe, with no recurrence noted. Recent blood work in December 2024 showed anemia with hemoglobin at 13.5 g/dL and hematocrit at 38.9%. Other lab results indicated normal renal and liver function, with a blood glucose level of 107 mg/dL. Health Maintenance - Vaccinations: Up to date with shingles, tetanus, and pneumonia vaccines. - Screening: Regular endoscopic surveillance for Foreman's esophagus. - Screening: Follow-up with urology for prostate cancer surveillance. - Dermatology: Regular follow-up for seborrheic keratosis and dermatoheliosis. Social History - Exercise: Walks a mile daily, reports increased fatigue during walks, especially on hills. - Sleep: Reports excessive daytime sleepiness and fatigue, difficulty with CPAP adherence. Review of Systems - General: Reports weight loss, excessive daytime sleepiness, and fatigue. - Cardiovascular: Denies chest pain, orthopnea, or syncope. - Respiratory: Denies cough, hemoptysis, or wheezing. - Gastrointestinal: Reports rectal bleeding and diarrhea, denies abdominal pain. - Neurological: Denies headaches, dizziness, or balance issues. Physical Exam Results - Labs: Hemoglobin 13.5 g/dL, Hematocrit 38.9%, Blood glucose 107 mg/dL, LDL cholesterol 69 mg/dL, PSA 0.19. - Labs: Normal renal and liver function, normal iron levels. Plan Patient was informed and verbally consented to the use of an ambient scribe for clinic note documentation during this visit. 1. Diabetes Mellitus The patient is on insulin and Trulicity for diabetes management, with a goal to maintain hemoglobin A1c below 7.0%. Due to episodes of hypoglycemia, insulin dosage was reduced to 34 units. The patient is advised to monitor blood glucose levels closely and avoid skipping meals to prevent hypoglycemic episodes. 2. Foreman's Esophagus The patient undergoes regular endoscopic surveillance for Foreman's esophagus. He is scheduled for a follow-up endoscopy in the fall. 3. Hypercholesterolemia The patient is on atorvastatin 10 mg daily for hypercholesterolemia management. Recent LDL cholesterol levels were 69 mg/dL, indicating good control. 4. Obstructive Sleep Apnea The patient is unable to tolerate CPAP therapy for obstructive sleep apnea. He reports excessive daytime sleepiness and fatigue, impacting daily activities. 5. Prostate Cancer The patient was treated with radiotherapy for prostate cancer in 2018. PSA levels are currently low, and he continues to follow up with urology for surveillance. 6. Hypertension The patient is on lisinopril and hydrochlorothiazide for hypertension management. 7. Seborrheic Keratosis The patient follows up with dermatology for seborrheic keratosis management. 8. Basal Cell Carcinoma The patient had a basal cell carcinoma in the occipital area of the right earlobe, with no recurrence noted. 9. Anemia Recent blood work showed anemia with hemoglobin at 13.5 g/dL and hematocrit at 38.9%. 10. Radiation Proctitis The patient reports ongoing rectal bleeding and diarrhea, consistent with radiation proctitis following prostate cancer treatment. Discussion Notes During the visit, we discussed the management of diabetes mellitus, emphasizing the importance of maintaining hemoglobin A1c below 7.0% and monitoring blood glucose levels closely to prevent hypoglycemia. We reviewed the patient's history of Foreman's esophagus and the need for regular endoscopic surveillance, with a follow-up endoscopy scheduled for the fall. The patient was advised to continue atorvastatin for hypercholesterolemia management, with recent LDL levels indicating good control. We addressed the patient's obstructive sleep apnea and inability to tolerate CPAP therapy, noting the impact on daily activities. The patient's prostate cancer history was reviewed, with current PSA levels low and ongoing urology follow-up recommended. We discussed the patient's hypertension management with lisinopril and hydrochlorothiazide. The patient was reminded of the importance of dermatology follow-up for seborrheic keratosis and dermatoheliosis. We reviewed recent blood work showing anemia and discussed the need for further monitoring. Patient Instructions - Monitor blood glucose levels closely and avoid skipping meals to prevent hypoglycemia. - Continue taking atorvastatin as prescribed for cholesterol management. - Follow up with urology for prostate cancer surveillance. - Attend scheduled endoscopy for Foreman's esophagus surveillance. - Maintain regular dermatology appointments for skin condition monitoring. Orders: Orders Comprehensive Met. Panel Today E11. - Type 2 diabetes mellitus with hyperglycemia Thyroid Stimulating Hormone Today E11.65 - Type 2 diabetes mellitus with hyperglycemia Free T4 (Free Thyroxine) Today E11. - Type 2 diabetes mellitus with hyperglycemia PSA,Total (Free>4and<10) Today E11. - Type 2 diabetes mellitus with hyperglycemia Vitamin B12 and Folate Today E11.65 - Type 2 diabetes mellitus with hyperglycemia Hemoglobin A1c Today E11. - Type 2 diabetes mellitus with hyperglycemia Creatinine Urine Today E11.65 - Type 2 diabetes mellitus with hyperglycemia Microalbumin, Random (w Creat) Today E11.65 - Type 2 diabetes mellitus with hyperglycemia AMB Hemoglobin A1c Today Z13.9 - Encounter for screening, unspecified Complete Blood Count Auto Diff Today E11.65 - Type 2 diabetes mellitus with hyperglycemia Lipid Panel Today E11.65 - Type 2 diabetes mellitus with hyperglycemia, E78.00 - Pure hypercholesterolemia, unspecified Ferritin Today E11.65 - Type 2 diabetes mellitus with hyperglycemia IRON PROFILE Today E11.65 - Type 2 diabetes mellitus with hyperglycemia Reticulocyte Count Today E11.65 - Type 2 diabetes mellitus with hyperglycemia UA CC w/rflx Micro + Cult Today E11.65 - Type 2 diabetes mellitus with hyperglycemia, R30.0 - Dysuria XR chest 2V Today E11.65 - Type 2 diabetes mellitus with hyperglycemia
--- OUTSIDE RECORDS SUMMARY | 2025-07-09 09:48 | XMS_ITS | Patient Health Record ---
Author Organization [facility] Address [address] [place] [id number] Care Team Providers Care Monorail Charger Operator Name Role Phone Earl Hall Unavailable [phone] Reason For Referral No Information Plan Of Treatment No Information
--- OUTSIDE RECORDS SUMMARY | 2025-07-09 09:48 | XMS_ITS | Clinical Summary ---
Author Organization [facility]ly [facility] Address [address] [place] [address] Phone Care Team Providers Care Firer Tunnel Kiln Name Role Phone Antoni Damon MD Primary Care Provider [phone] Active Problems Problem Noted Date Diagnosed Date Foreman's esophagus 12/29/2011 Overview (11/28/2014): Foreman's esophagus Social History Tobacco Use Types Packs/Day Years Used Date Smoking Tobacco: Never Assessed Sex and Gender Information Value Date Recorded Sex Assigned at Not on file Legal Sex Male 6:26 PM EST Gender Identity Not on file Sexual Orientation Not on file Plan of Treatment Not on file Medical Devices Not on file Insurance [facility] [employer] [facility] [place] [address] [place] [address] [employer] [facility] [employer] [facility] [place] [address] [address] [place] [address] MULT[employer] Care Teams Firer Tunnel Kiln Relationship Specialty Start Date End Date Antoni Damon MD [address] [place] [id number] PCP - General 7/1/14 Additional Source Comments The information contained in this document represents components of the legal health record. It is not the complete legal health record.[facility]ly [facility]
--- OUTSIDE RECORDS SUMMARY | 2025-07-09 09:48 | XMS_ITS | Continuity of Care Document ---
Author Organization [facility] Address [address] [place] [address] Phone [phone] Care Team Providers Care Shellfish Processing Laborer Name Role Phone Nelson Velvetfredi Care Team Information Cloth Shrinking Tester [phone] Problems Active Problems Provider Date Type 2 [...] SIG Qnty Indications Order ing Provider Date Mmlrelkst2uu/0.5ML Solution Auto-Inject Inject 3 MG Subcutaneously Once A Week 6ml E11.9 Shanna Clinton NP 09/24/2024 Z79.4 [id number] Capsules 1 by mouth every day as needed 30blaine Rodriguez M.D. 11/21/2023 Lisinopril-Hydrochlor kjasjtakf90-23.5mg Tablets 1 bid Gee Rodriguez M.D. 07/20/2023 BD Pen NDL [id number] 31G X31G X 5 mm Three times daily, use new pen needle with insulin pens. 300units Megan Ambriz M.D. 08/30/2022 Atorvastatin Bhgobiy21nn Tablets 1 by mouth every day 90talois fountain M.D. 04/20/2022 Lantus Gcujmopq932Isau/ML Solution Pen-Inject Inject 34 Unit Subcutaneously AT Bedtime 30ml E11.9 Shanna Clinton, CHARTER AND TOUR BUS DRIVER Freestyle Lite TestStrips 1 strip to skin every day Dx: E11.9 100units E11.9 Megan Ambriz M.D. Humalog Llxqxah535Dlxo/ML Solution Pen-Inject Inject 6-12 Units Subcutaneously Before Meals, Max Daily Dose Of 36 Units 15units Megan Ambriz M.D. Qwqqfdmvix93oy Capsules DR 1 tab by mouth twice a day 90blaine Rodriguez M.D. History Medications Freestyle Alem 3/Sensor/Glucose Monitoring Nvyojv2Sxlfyu Misc Change Sensor Every 14 Days 2units E11.9 Megan Ambriz M.D. 07/24/2024 - 07/24/2024 Z79.4 Vital Signs Date Vital Result Comment 04/07/2025 10:14am BP Systolic 122 mmHg BP Diastolic 60 mmHg Heart Rate 83 /min Height 73 inches 6'1 Weight 211.00 lb BMI (Body Mass Index) 27.8 kg/m2 Results Test Acquired Date Facility Test Result H/L Range Note Glucose Fingerstick 04/07/2025 [facility] Glucose Fingerstick 167 Hemoglobin A1c 04/03/2025 [facility] Hemoglobin A1c 7.1 % High 4.8-5.6 1 Glucose Fingerstick 01/06/2025 [facility]house Glucose Fingerstick 161 Hemoglobin A1c 01/01/2025 [facility] Hemoglobin A1c 7.5 % High 4.8-5.6 2, 3 Albumin/Creatini ne Ratio, Random Urine 09/24/2024 [facility] Creatinine, Urine 110.8 mg/dL Not Estab. Albumin, Urine 6.1 ug/mL Not Estab. Alb/Creat Ratio 6 mg/gcreat 0-29 4 Glucose Fingerstick 09/24/2024 [facility] Glucose Fingerstick 227 Hemoglobin A1c 09/18/2024 [facility] Hemoglobin A1c 7.9 % High 4.8-5.6 5 Glucose Fingerstick 06/16/2024 [facility] Glucose Fingerstick 159 Hemoglobin A1c 06/10/2024 [facility] Hemoglobin A1c 7.0 % High 4.8-5.6 6, 7 Glucose Fingerstick 03/11/2024 [facility] Glucose Fingerstick 181 Hemoglobin A1c 03/07/2024 [facility] Hemoglobin A1c 7.3 % High 4.8-5.6 8, 9 Glucose Fingerstick 11/21/2023 [facility] Glucose Fingerstick 168 Hemoglobin A1c 11/15/2023 [facility] Hemoglobin A1c 7.2 % High (4.0-5.6) 10 Glucose Fingerstick 07/20/2023 [facility] Glucose Fingerstick 189 Hemoglobin A1c 07/10/2023 [facility] Hemoglobin A1c 7.3 % High (4.0-5.6) 11 Glucose Fingerstick 03/12/2023 [facility] Glucose Fingerstick 155 Hemoglobin A1c 03/10/2023 [facility] Hemoglobin A1c 7.0 % High (4.0-5.6) 12 Glucose Fingerstick 11/29/2022 [facility] Glucose Fingerstick 186 Hemoglobin A1c 11/28/2022 [facility] Hemoglobin A1c 7.0 % High (4.0-5.6) 13 Glucose Fingerstick 08/02/2022 [facility] Glucose Fingerstick 158 Urinary Microalbumin 07/31/2022 [facility] Micro-Albumin <12.0 mg/L (<20) 14 Malb/Creat Ratio Unable to calcul <SEE NOTE> MG/GM (0-20) 15 Urine Creat For Micro Albumin 122.8 mg/dL Hemoglobin A1c 07/31/2022 [facility] Hemoglobin A1c 7.2 % High (4.0-5.6) 16 Glucose Fingerstick 04/20/2022 [facility] Glucose Fingerstick 192 Hemoglobin A1c 04/20/2022 [facility] Hemoglobin A1c 7.6% 1 Prediabetes: 5.7 - 6 .4 Diabetes: >6.4 Glycemic control for adults with diabetes: <7.0 2 STANDING ORDER EVERY 3 M ONTHS 3 Prediabetes: 5.7 - 6 .4 Diabetes: >6.4 Glycemic control for adults with diabetes: <7.0 4 Normal: 0 - 29 Moderately increased: 30 - 300 Severely increased: >300 5 Prediabetes: 5.7 - 6 .4 Diabetes: >6.4 Glycemic control for adults with diabetes: <7.0 6 A courtesy copy of t his report has been sent to the patient STANDING ORDER EVERY 3 M ONTHS 7 Prediabetes: 5.7 - 6 .4 Diabetes: >6.4 Glycemic control for adults with diabetes: <7.0 8 STANDING ORDER EVERY 3 M ONTHS 9 Prediabetes: 5.7 - 6 .4 Diabetes: >6.4 Glycemic control for adults with diabetes: <7.0 10 MONITORING: In known diabetic patients, hemoglobin A1c targets should be discussed with health care provider. DIAGNOSTIC USE: The [employer] Diabetes Association (ADA) and the World Health [...] with health care provider. DIAGNOSTIC USE: The [employer] Diabetes Association (ADA) and the World Health [...] with health care provider. DIAGNOSTIC USE: The [employer] Diabetes Association (ADA) and the World Health [...] and Education Volume 43, Supplement 1 13 MONITORING: In known diabetic patients, hemoglobin A1c targets should be discussed with health care provider. DIAGNOSTIC USE: The [employer] Diabetes Association (ADA) and the World Health [...] Research and Education Volume 43, Supplement 1 14 The urine microalbum in test is designed to monitor renal function. When screening for Bence Green proteinuria, urine electrophoresis is recommended. 15 Unable to calculate 16 MONITORING: In known diabetic patients, hemoglobin A1c targets should be discussed with health care provider. DIAGNOSTIC USE: The [employer] Diabetes Association (ADA) and the World Health [...] Date Location Provider Dx Diagnosis Office Visit 04/07/2025 10:30a Main Office BUBBA Delgado E11.9 Type 2 diabet es mellitus without complications Z79.4 salvage determiner (current) use of insulin Assessments Date Code Description Provider 04/07/2025 E11.9 Type 2 diabetes mellitus wit hout complications BUBBA Delgado 04/07/2025 Z79.4 assisted (current) use of i nsulin BUBBA Delgado Plan of Treatment Future Appointment(s):* 07/10/2025 11:00 am - Shanna Clinton NP at Main Office Functional Status Description No Information Available Mental Status Description No Information Available Referrals Description No Information Available
== END 2025-07-09 09:52 | disposition home or self-care (01) ==
LOC: HO.HMCH 09:03
PROVIDERS: PCP Internal Medicine; Visit Provider Internal Medicine
DX: E11.65 Type 2 diabetes mellitus with hyperglycemia (principal); C61 Malignant neoplasm of prostate; I10 Essential (primary) hypertension; E78.00 Pure hypercholesterolemia, unspecified; K22.70 Barrett's esophagus without dysplasia

== ENCOUNTER → 2025-07-09 09:02 | Outpatient (BNVA) | payer MEDICARE, SELFPAY | PROVIDERS: PCP Internal Medicine; Visit Provider Internal Medicine | DX: E11.65 Type 2 diabetes mellitus with hyperglycemia (principal); I10 Essential (primary) hypertension; E78.00 Pure hypercholesterolemia, unspecified; K22.70 Barrett's esophagus without dysplasia; C61 Malignant neoplasm of prostate; G47.33 Obstructive sleep apnea (adult) (pediatric); L82.1 Other seborrheic keratosis; D64.9 Anemia, unspecified; K62.7 Radiation proctitis; Z85.828 Personal history of other malignant neoplasm of skin | CPT/HCPCS: 83036; 96127; 99212 ==

== ENCOUNTER 2025-07-13 10:09 | Outpatient (REF) | payer MEDICARE, SELFPAY ==
--- NOTE | ~2025-07-13 | XR_ITS ---
EXAMINATION: XR CHEST CLINICAL INFORMATION: E11.65 - Type 2 diabetes mellitus with hyperglycemia COMPARISON: None available. TECHNIQUE: 2 views of the chest were obtained. FINDINGS: The cardiomediastinal silhouette is within normal limits. The lungs are well expanded. There is no focal consolidation, edema, or effusion. No pneumothorax. Multilevel spine disc degeneration.. XR/XR chest 2V IMPRESSION: No acute pulmonary process. Electronically signed by: John Paul Krause MD 07/13/2025 10:33 AM EDT
--- OUTSIDE RECORDS SUMMARY | 2025-07-13 11:48 | XMS_ITS | Continuity of Care Document ---
Author Organization [facility] Address [address] [place] [address] Phone [phone] Care Team Providers Care Sample Driller Name Role Phone Nelson Velvetfredi Care Team Information Veneer Stacker [phone] Problems Active Problems Provider Date Type 2 diabetes mellitus Gee Rodriguez M.D. O nset: 04/20/2022 Pure hypercholesterolemia Gee Rodriguez M.D. Onset: 04/20/2022 Essential hypertension Gee Rodriguez M.D. Ons et: 04/20/2022 Gastro-esophageal reflux dis ease with esophagitis Gee Rdoriguez M.D. Onset: 04/20/2022 Insulin treated type 2 [...] SIG Qnty Indications Order ing Provider Date Bmhtlvvle2vc/0.5ML Solution Auto-Inject Inject 3 MG Subcutaneously Once A Week 6ml E11.9 Shanna Clinton NP 09/24/2024 Z79.4 Jkjapavh762gb Capsules 1 by mouth every day as needed 30blaine Rodriguez M.D. 11/21/2023 Lisinopril-Hydrochlor kjvdxqofy88-39.5mg Tablets 1 bid Gee Rodriguez M.D. 07/20/2023 BD Pen NDL 37PF6HG 31G X31G X 5 mm Three times daily, use new pen needle with insulin pens. 300units Megan Ambriz M.D. 08/30/2022 Atorvastatin Namdfcc73xl Tablets 1 by mouth every day 90talois fountain M.D. 04/20/2022 Lantus Dsouewfv200Acej/ML Solution Pen-Inject Inject 34 Unit Subcutaneously AT Bedtime 30ml E11.9 Shanna Clinton, DANCE DIRECTOR Freestyle Lite TestStrips 1 strip to skin every day Dx: E11.9 100units E11.9 Megan Ambriz M.D. Humalog Qsnkwlr430Hulf/ML Solution Pen-Inject Inject 6-12 Units Subcutaneously Before Meals, Max Daily Dose Of 36 Units 15units Megan Ambriz M.D. Ijseuigkwk27sc Capsules DR 1 tab by mouth twice a day 90blaine Rodriguez M.D. History Medications Freestyle Alem 3/Sensor/Glucose Monitoring Eomwfk8Womvwz Misc Change Sensor Every 14 Days 2units E11.9 Megan Ambriz M.D. 07/24/2024 - 07/24/2024 Z79.4 Vital Signs Date Vital Result Comment 04/07/2025 10:14am BP Systolic 122 mmHg BP Diastolic 60 mmHg Heart Rate 83 /min Height 73 inches 6'1 Weight 211.00 lb BMI (Body Mass Index) 27.8 kg/m2 Results Test Acquired Date Facility Test Result H/L Range Note Hemoglobin A1c 07/11/2025 [facility] Hemoglobin A1c 6.7 % High 4.8-5.6 1, 2 Glucose Fingerstick 04/07/2025 [facility] Glucose Fingerstick 167 Hemoglobin A1c 04/03/2025 [facility] Hemoglobin A1c 7.1 % High 4.8-5.6 3 Glucose Fingerstick 01/06/2025 [facility] Glucose Fingerstick 161 Hemoglobin A1c 01/01/2025 [facility] Hemoglobin A1c 7.5 % High 4.8-5.6 4, 5 Albumin/Creatini ne Ratio, Random Urine 09/24/2024 [facility] Creatinine, Urine 110.8 mg/dL Not Estab. Albumin, Urine 6.1 ug/mL Not Estab. Alb/Creat Ratio 6 mg/gcreat 0-29 6 Glucose Fingerstick 09/24/2024 [facility] Glucose Fingerstick 227 Hemoglobin A1c 09/18/2024 [facility] Hemoglobin A1c 7.9 % High 4.8-5.6 7 Glucose Fingerstick 06/16/2024 [facility] Glucose Fingerstick 159 Hemoglobin A1c 06/10/2024 [facility] Hemoglobin A1c 7.0 % High 4.8-5.6 8, 9 Glucose Fingerstick 03/11/2024 [facility] Glucose Fingerstick 181 Hemoglobin A1c 03/07/2024 [facility] Hemoglobin A1c 7.3 % High 4.8-5.6 10, 11 Glucose Fingerstick 11/21/2023 [facility] Glucose Fingerstick 168 Hemoglobin A1c 11/15/2023 [facility] Hemoglobin A1c 7.2 % High (4.0-5.6 ) 12 Glucose Fingerstick 07/20/2023 [facility] Glucose Fingerstick 189 Hemoglobin A1c 07/10/2023 [facility] Hemoglobin A1c 7.3 % High (4.0-5.6 ) 13 Glucose Fingerstick 03/12/2023 [facility] Glucose Fingerstick 155 Hemoglobin A1c 03/10/2023 [facility] Hemoglobin A1c 7.0 % High (4.0-5.6 ) 14 Glucose Fingerstick 11/29/2022 [facility] Glucose Fingerstick 186 Hemoglobin A1c 11/28/2022 [facility] Hemoglobin A1c 7.0 % High (4.0-5.6 ) 15 Glucose Fingerstick 08/02/2022 [facility] Glucose Fingerstick 158 Urinary Microalbumin 07/31/2022 [facility] Micro-Albumin <12.0 mg/L (<20) 16 Malb/Creat Ratio Unable to calcul <SEE NOTE> MG/GM (0-20) 17 Urine Creat For Micro Albumin 122.8 mg/dL Hemoglobin A1c 07/31/2022 [facility] Hemoglobin A1c 7.2 % High (4.0-5.6 ) 18 Glucose Fingerstick 04/20/2022 [facility] Glucose Fingerstick 192 Hemoglobin A1c 04/20/2022 [facility] Hemoglobin A1c 7.6% 1 [facility] corazon appt 07/17 2 Prediabetes: 5.7 - 6 .4 Diabetes: >6.4 Glycemic control for adults with diabetes: <7.0 3 Prediabetes: 5.7 - 6 .4 Diabetes: >6.4 Glycemic control for adults with diabetes: <7.0 4 STANDING ORDER EVERY 3 M ONTHS 5 Prediabetes: 5.7 - 6 .4 Diabetes: >6.4 Glycemic control for adults with diabetes: <7.0 6 Normal: 0 - 29 Moderately increased: 30 - 300 Severely increased: >300 7 Prediabetes: 5.7 - 6 .4 Diabetes: >6.4 Glycemic control for adults with diabetes: <7.0 8 A courtesy copy of t his report has been sent to the patient STANDING ORDER EVERY 3 M ONTHS 9 Prediabetes: 5.7 - 6 .4 Diabetes: >6.4 Glycemic control for adults with diabetes: <7.0 10 STANDING ORDER EVERY 3 M ONTHS 11 Prediabetes: 5.7 - 6 .4 Diabetes: >6.4 Glycemic control for adults with diabetes: <7.0 12 MONITORING: In known diabetic patients, hemoglobin A1c targets should be discussed with health care provider. DIAGNOSTIC USE: The [place] [employer] (ADA) and the World Health [...] with health care provider. DIAGNOSTIC USE: The [place] [employer] (ADA) and the World Health [...] and Education Volume 43, Supplement 1 14 MONITORING: In known diabetic patients, hemoglobin A1c targets should be discussed with health care provider. DIAGNOSTIC USE: The [place] [employer] (ADA) and the World Health [...] Research and Education Volume 43, Supplement 1 15 MONITORING: In known diabetic patients, hemoglobin A1c targets should be discussed with health care provider. DIAGNOSTIC USE: The [place] [employer] (ADA) and the World Health [...] Research and Education Volume 43, Supplement 1 16 The urine microalbum in test is designed to monitor renal function. When screening for [place] proteinuria, urine electrophoresis is recommended. 17 Unable to calculate 18 MONITORING: In known diabetic patients, hemoglobin A1c targets should be discussed with health care provider. DIAGNOSTIC USE: The [place] [employer] (ADA) and the World Health [...] 2 diabet es mellitus without complications Z79.4 terminal make up operator (current) use of insulin Assessments Date Code Description Provider 04/07/2025 E11.9 Type 2 diabetes mellitus wit hout complications BUBBA Delgado 04/07/2025 Z79.4 terminal make up operator (current) use of i nsulin BUBBA Delgado Plan of Treatment Future Appointment(s):* 07/17/2025 11:00 am - Shanna Clinton NP at Main Office 07/10/2025 - Shanna Clinton NP* * New Labs:* Hemoglobin A1c, Ordered: 07/10/25 * Lipid Panel, Ordered: 07/10/25 * Comp. Metabolic Panel (14), Ordered: 07/10/25 * Albumin/Creatinine Ratio, Random Urine, Ordered: 07/10/25 Functional Status Description No Information Available Mental Status Description No Information Available Referrals Description No Information Available
--- OUTSIDE RECORDS SUMMARY | 2025-07-13 11:48 | XMS_ITS | Patient Health Record ---
Author Organization [facility] Address [address] [place] [id number] Care Team Providers Care Aviation Metalsmith Name Role Phone Earl Hall Unavailable [phone] Reason For Referral No Information Plan Of Treatment No Information
--- OUTSIDE RECORDS SUMMARY | 2025-07-13 11:48 | XMS_ITS | Clinical Summary ---
Author Organization [facility] Address [address] [place] [address] Phone Care Team Providers Care Angio Technologist Name Role Phone Antoni Damon MD Primary Care Provider [phone] Active Problems Problem Noted Date Diagnosed Date [...] file Medical Devices Not on file Insurance [facility] [employer] [facility] [employer] [facility] [employer] [facility] [place] [address] [place] [address] [employer] [facility] [employer] [facility] [employer] [address] [place] [address] MULTIP[employer] Care Teams Angio Technologist Relationship Specialty Start Date End Date Antoni Damon MD [address] [place] [id number] PCP - General 7/1/14 Additional Source Comments The information contained in this document represents components of the legal health record. It is not the complete legal health record.[facility]
== END 2025-07-13 10:10 | disposition home or self-care (01) ==
LOC: HO.XRAY 10:09
PROVIDERS: PCP Internal Medicine; Visit Provider Internal Medicine
DX: E11.65 Type 2 diabetes mellitus with hyperglycemia (principal)
CPT/HCPCS: 71046

== ENCOUNTER → 2025-07-13 10:15 | Outpatient (BNV) | payer MEDICARE, SELFPAY | PROVIDERS: PCP Internal Medicine; Visit Provider Radiology Diagnostic Ultrasound | DX: E11.65 Type 2 diabetes mellitus with hyperglycemia (principal) | CPT/HCPCS: 71046 ==